=== PATIENT | female | born 1960 | race Caucasian/White ===

== ENCOUNTER 2020-01-12 10:15 | Outpatient (CLI) | payer OTHER, SELFPAY ==
--- NOTE | ~2020-01-12 | MM_ITS ---
EXAMINATION: MM screening [facility] BI w sweta HISTORY: Screening mammogram TECHNIQUE: Craniocaudal and mediolateral oblique 3-D tomosynthesis images were obtained and synthetic 2-D images were generated. CAD analysis was submitted and interpreted. COMPARISON: 10/21/2018, 11/13/2016, 04/19/2015 BREAST PARENCHYMAL COMPOSITION: There are scattered areas of fibroglandular density. FINDINGS: Scattered benign-appearing calcifications are present. There is no evidence of suspicious m ass, calcification, or architectural distortion to suggest malignancy in either breast. There has bee n no suspicious interval change. IMPRESSION: 1. No mammographic evidence of malignancy. 2. Recommend routine screening mammography in one year. BI-RADS Category 2: Benign finding(s). Reviewed, dictated and finalized at location A.
== END 2020-01-12 10:16 | disposition home or self-care (01) ==
LOC: ANHIMG 10:19
PROVIDERS: PCP Emergency Medicine; Visit Provider Emergency Medicine
DX: Z12.31 Encounter for screening mammogram for malignant neoplasm of breast (principal)
CPT/HCPCS: 77063; 77067

== ENCOUNTER 2020-01-29 17:06 | Emergency (ER) | payer OTHER, SELFPAY ==
[2020-01-29 17:18] VITALS: BP 150/72; PULSE 83; RESP 16; TEMP 36.7; O2SAT 95
--- NOTE | 2020-01-29 17:37 | ED.GENADULT ---
HPI - General Adult General Chief complaint: Extremity Injury, Lower Stated complaint: URI/Right knee pain History of Present Illness HPI narrative: This is a 59-year-old female comes in complaining head burning states that after she found out her daughter did not have the coronavirus her head started burning she also has pressure in her nasal nares and pressure in her face and congestion patient states that she not able to blow her ears. Patient has order from x-ray but forgot it at home and will return back with x-ray Related Data Home Medications Medication Instructions Recorded Confirmed lisinopril 20 mg PO DAILY 01/29/20 01/29/20 Allergies Allergy/AdvReac Type Severity Reaction Status Date / Time No Known Allergies Allergy Unknown Verified 08/05/19 15:18 No Known Allergies Allergy Uncoded 08/05/19 15:18 Review of Systems Review of Systems: Narrative: CONSTITUTIONAL: Denies fever, chills, or sweats. EYES: Denies visual changes, redness, or discharge. ENT: Reports rhinorrhea, congestion, sore throat, or otalgia. CARDIOVASCULAR:Denies chest pain, palpitations, or edema. RESPIRATORY: Reports cough or dyspnea. GASTROINTESTINAL: Denies abdominal pain, nausea, vomiting, or diarrhea. GENITOURINARY: Denies dysuria or hematuria. SKIN:[Denies rash or itching. MUSCULOSKELETAL:Denies back pain, joint pain, or myalgia. NEUROLOGIC: Denies headache, numbness, or weakness. PSYCHIATRIC:Denies anxiety or depression [facility] Family History Family History (Updated 07/04/14 @ 07:13 by DOCTOR UNKNOWN) Other Family history of coronary artery disease Social History Social History Alcohol intake: current Gender identity (if verbalized by the patient): Female Comments Gross at time as signature, I have reviewed and agree with nursing past medical, social, surgical and family history. Please see nursing chart for further information. There is no relevant family history pertinent to the presenting complaint. Exam Narrative: Exam Narrative: GENERAL:Well-appearing, well-nourished, and in no acute distress. HEAD:Normocephalic, atraumatic. EYES: PERRLA and EOMI. ENT: Nares clear, moderate rhinorrhea TM pressure frontal and maxillary or epistaxis. Mucous membranes moist. Forehead pain and pressure burning per patient no erythema swelling NECK: Supple. CHEST: Clear to auscultation. No respiratory distress. HEART: Regular rate and rhythm. No murmur heard. Normal peripheral pulses. ABDOMEN: Soft, nontender, nondistended, normal active bowel sounds. EXTREMITIES: Normal range of motion. No edema. SKIN: Warm, dry, no rash. NEURO: No focal deficits. Alert and oriented x3. Course Vital Signs Vital signs: Vital Signs Temperature 98.1 F 01/29/20 17:18 Pulse Rate 83 01/29/20 17:18 Respiratory Rate 16 01/29/20 17:18 Blood Pressure 150/72 H 01/29/20 17:18 Pulse Oximetry 95 01/29/20 17:18 Temperature 98.1 F 01/29/20 17:18 Pulse Rate 83 01/29/20 17:18 Respiratory Rate 16 01/29/20 17:18 Blood Pressure 150/72 H 01/29/20 17:18 Pulse Oximetry 95 01/29/20 17:18 Medical Decision Making Vital Signs Vital Signs: Vital Signs Temperature 98.1 F 01/29/20 17:18 Pulse Rate 83 01/29/20 17:18 Respiratory Rate 16 01/29/20 17:18 Blood Pressure 150/72 H 01/29/20 17:18 Pulse Oximetry 95 01/29/20 17:18 Temperature 98.1 F 01/29/20 17:18 Pulse Rate 83 01/29/20 17:18 Respiratory Rate 16 01/29/20 17:18 Blood Pressure 150/72 H 01/29/20 17:18 Pulse Oximetry 95 01/29/20 17:18 Discharge Plan Discharge Clinical Impression: Acute sinus infection Qualifiers: Sinusitis location: frontal Recurrence: recurrent Qualified Code(s): J01.11 - Acute recurrent frontal sinusitis Patient Disposition: Home, Self-Care Condition: Stable Instructions: Antibiotic Form, Sinusitis (ED), Rhinosinusitis (ED), Warm Compress or Soak (ED) Prescriptions: New amoxicillin-pot clavu
== END 2020-01-29 17:49 | disposition home or self-care (01) ==
PROVIDERS: Emergency Provider Nurse Practitioner Family; PCP Emergency Medicine
DX: J01.11 Acute recurrent frontal sinusitis (principal); I10 Essential (primary) hypertension
CPT/HCPCS: 99213; G0463

== ENCOUNTER → 2020-02-02 12:25 | Outpatient (CLI) | payer OTHER, SELFPAY ==
--- NOTE | ~2020-02-02 | XR_ITS ---
EXAMINATION: XR knee RT min 4V DATE: 02/02/2020 12:47 INDICATION: Right knee pain post injury TECHNIQUE: Anteroposterior, 2 oblique and crosstable lateral views of the right knee were obtained COMPARISON: 08/05/2011 FINDINGS: Alignment is normal. No fracture. Mild tricompartmental osteoarthritis with at least mild joint spac e narrowing the medial and patellofemoral compartments and small marginal osteophytes in the lateral compartment. Moderate enthesophyte at the patellar insertion of the distal quadriceps tendon. No appr eciable right knee joint effusion/layering lipohemarthrosis. Soft tissues are unremarkable. IMPRESSION: 1. . Right knee mild tricompartmental osteoarthritis. No joint effusion or acute osseous abnormality. Reviewed, dictated and finalized at location A. IMPRESSION: 1. . Right knee mild tricompartmental osteoarthritis. No joint effusion or acut e osseous abnormality.
== END ==
PROVIDERS: PCP Emergency Medicine; Visit Provider Emergency Medicine
DX: M17.11 Unilateral primary osteoarthritis, right knee (principal)
CPT/HCPCS: 73564

== ENCOUNTER 2020-03-07 11:04 | Emergency (ER) | payer OTHER, SELFPAY ==
[2020-03-07 11:16] VITALS: BP 155/86; PULSE 90; RESP 16; TEMP 36.5; O2SAT 98
--- NOTE | 2020-03-07 11:23 | ED.GENADULT ---
HPI - General Adult General Chief complaint: Headache Stated complaint: head pain Time Seen by Provider: 03/07/20 11:23 Source: patient Mode of arrival: ambulatory Limitations: no limitations History of Present Illness HPI narrative: 59-year-old female patient presents to the [facility] with complaints of headache for the past couple of months. Patient states she has also had a lot of pressure under her eyes, itching to her eyes. Patient also complaining of stuffy nose. Denies any chest pain, shortness of breath or coughing. Patient states she was seen here couple months ago and was given an antibiotic along with some Zyrtec. Patient states she also saw her primary doctor last week and was given another antibiotic. Patient states she continues to have a headache and feels very congested with a lot of pressure to the head. Patient does smoke about 1/2 pack a day. Denies being diabetic. Related Data Home Medications Medication Instructions Recorded Confirmed lisinopril 20 mg PO DAILY 01/29/20 01/29/20 Allergies Allergy/AdvReac Type Severity Reaction Status Date / Time No Known Allergies Allergy Unknown Verified 08/05/19 15:18 No Known Allergies Allergy Uncoded 08/05/19 15:18 Review of Systems Review of Systems: Narrative: CONSTITUTIONAL: Denies fever, chills, or sweats. EYES: Denies visual changes, redness, or discharge. ENT: Positive rhinorrhea, congestion denies sore throat, or otalgia. CARDIOVASCULAR: Denies chest pain, palpitations, or edema. RESPIRATORY: Denies cough or dyspnea. GASTROINTESTINAL: Denies abdominal pain, nausea, vomiting, or diarrhea. GENITOURINARY: Denies dysuria or hematuria. SKIN: Denies rash or itching. MUSCULOSKELETAL: Denies back pain, joint pain, or myalgia. NEUROLOGIC: Positive headache, denies numbness, or weakness. PSYCHIATRIC: Denies anxiety or depression. [facility] Family History Family History Other Family history of coronary artery disease Social History Social History Alcohol intake: current Gender identity (if verbalized by the patient): Female Comments At the time of my signature I agree with nursing past medical history, surgical, social, and family history. There is no relevant family history pertinent to the presenting complaint. Exam Narrative: Exam Narrative: GENERAL: Well-appearing, well-nourished, and in no acute distress. HEAD: Normocephalic, atraumatic. Tenderness noted to frontal maxillary sinuses on palpation EYES: PERRLA and EOMI. ENT: Nares with erythema and edema noted bilaterally, no rhinorrhea or epistaxis. Mucous membranes moist. Posterior pharynx with no erythema, tonsillar edema, exudates or lesions present. Bilateral TMs are clear no erythema or foreign bodies in the canal. NECK: Supple. No lymphadenopathy CHEST: Clear to auscultation. No respiratory distress. HEART: Regular rate and rhythm. No murmur heard. Normal peripheral pulses. ABDOMEN: Soft, nontender, nondistended, normal active bowel sounds. EXTREMITIES: Normal range of motion. No edema. SKIN: Warm, dry, no rash. NEURO: Alert and oriented x4, GCS 15. Cranial nerves II through XII grossly intact. No focal neurological deficits. Normal muscle strength and tone. Normal deep tendon reflexes. Negative Babinski, normal finger to nose coordination he had normal heel to robertson glide. Speech is clear. Normal gait. Negative Romberg and no pronator drift Course Vital Signs Vital signs: Vital Signs Temperature 36.5 C 03/07/20 11:16 Pulse Rate 90 03/07/20 11:16 Respiratory Rate 16 03/07/20 11:16 Blood Pressure 155/86 H 03/07/20 11:16 Pulse Oximetry 98 03/07/20 11:16 Temperature 36.5 C 03/07/20 11:16 Pulse Rate 90 03/07/20 11:16 Respiratory Rate 16 03/07/20 11:16 Blood Pressure 155/86 H 03/07/20 11:16 Pulse Oximetry 98 03/07/20 11:16 Vital signs reviewed.
== END 2020-03-07 11:48 | disposition home or self-care (01) ==
PROVIDERS: Emergency Provider Nurse Practitioner Family; PCP Emergency Medicine
DX: J32.0 Chronic maxillary sinusitis (principal); R51 Headache; I10 Essential (primary) hypertension; F17.210 Nicotine dependence, cigarettes, uncomplicated
CPT/HCPCS: 99213; G0463

== ENCOUNTER 2020-03-16 10:23 | Emergency (ER) | payer OTHER, SELFPAY ==
[2020-03-16 10:36] VITALS: BP 161/80; PULSE 103; RESP 18; TEMP 36.6; O2SAT 98
--- NOTE | 2020-03-16 11:52 | ED.GENADULT ---
HPI - General Adult General Chief complaint: Extremity Problem,Nontraumatic Stated complaint: right knee injury causing pain Time Seen by Provider: 03/16/20 10:28 History of Present Illness HPI narrative: Patient is a 59-year-old female who presents the ER with right knee pain. Reports it is been ongoing for 3 months. She had an x-ray performed several weeks ago that was unremarkable. She now sees Dr. Gutiérrez who has an outpatient MRI scheduled for her. She has no new trauma. No new swelling or redness to the knee. She has been taking diclofenac without improvement. Related Data Home Medications Medication Instructions Recorded Confirmed lisinopril 20 mg PO DAILY 01/29/20 01/29/20 diclofenac sodium PO 03/16/20 Allergies Allergy/AdvReac Type Severity Reaction Status Date / Time No Known Allergies Allergy Unknown Verified 03/16/20 10:44 Review of Systems Review of Systems: All systems reviewed & are unremarkable except as noted in HPI and below Constitutional: Constitutional: Denies chills, Denies fever(s) and Denies weakness ENT: Denies nasal congestion and Denies sore throat Cardiovascular: Cardiovascular: Denies chest pain and Denies rapid heart rate Respiratory: Respiratory: Denies cough and Denies dyspnea Musculoskeletal: Musculoskeletal: Denies myalgias, Reports arthralgias and Denies joint swelling PMFSH Past Medical History Medical History (Updated 03/16/20 @ 12:29 by Deion Arias MD) Hypertension Surgical History Surgical History (Updated 03/16/20 @ 11:55 by Deion Arias MD) No significant past surgical history Social History Social History (Updated 03/16/20 @ 11:55 by Deion Arias MD) Smoking status: Never smoker Alcohol intake: current Gender identity (if verbalized by the patient): Female Exam Narrative: Exam Narrative: GENERAL: Well-appearing, well-nourished, and in no acute distress. HEAD: Normocephalic, atraumatic. ENT: Mucous membranes moist. EXTREMITIES: Limited range of motion at the right knee due to pain, no swelling or joint line tenderness. No redness over the knee. SKIN: Warm, dry, no rash. NEURO: No focal deficits. Alert and oriented x3. PSYCH: Normal mood and affect. Course Course Emergency Course: Discussed with patient that she needs to continue follow-up with Dr. Gutiérrez. No MRI can be obtained today. No signs of infection on examination or in history. Patient may require knee replacement to totally fix her discomfort. Vital Signs Vital signs: Vital Signs Temperature 98 F 03/16/20 10:36 Pulse Rate 103 H 03/16/20 10:36 Respiratory Rate 18 03/16/20 10:36 Blood Pressure 161/80 H 03/16/20 10:36 Pulse Oximetry 98 03/16/20 10:36 Temperature 98 F 03/16/20 10:36 Pulse Rate 103 H 03/16/20 10:36 Respiratory Rate 18 03/16/20 10:36 Blood Pressure 161/80 H 03/16/20 10:36 Pulse Oximetry 98 03/16/20 10:36 Medical Decision Making Vital Signs Vital Signs: Vital Signs Temperature 98 F 03/16/20 10:36 Pulse Rate 103 H 03/16/20 10:36 Respiratory Rate 18 03/16/20 10:36 Blood Pressure 161/80 H 03/16/20 10:36 Pulse Oximetry 98 03/16/20 10:36 Temperature 98 F 03/16/20 10:36 Pulse Rate 103 H 03/16/20 10:36 Respiratory Rate 18 03/16/20 10:36 Blood Pressure 161/80 H 03/16/20 10:36 Pulse Oximetry 98 03/16/20 10:36 Discharge Plan Discharge Clinical Impression: Chronic knee pain Patient Disposition: Home, Self-Care Condition: Stable Instructions: Knee Pain (ED), Arthritis (ED) Additional Instructions: Return to the ER if you have chest pain or shortness of breath, you cannot keep down food or water, you have fever over 100.4 ?F, you have additional concerns. Prescriptions: New hydrocodone-acetaminophen 5-325 mg tablet 1 tablet PO Q6H PRN (Reason: pain) Qty: 20 RF: 0 No Action lisinopril 20 mg Tablet 20 mg PO DAILY RF: 0 diclofenac sodium 75 mg table
[2020-03-16 13:11] VITALS: BP 142/76; PULSE 88; RESP 16; O2SAT 97
== END 2020-03-16 12:45 | disposition home or self-care (01) ==
PROVIDERS: Emergency Provider Emergency Medicine; PCP Emergency Medicine
DX: M25.561 Pain in right knee (principal); I10 Essential (primary) hypertension; G89.29 Other chronic pain
CPT/HCPCS: 99283; A9270

== ENCOUNTER 2020-08-27 06:48 | Outpatient (NON) | payer OTHER, SELFPAY ==
[2020-08-27 23:56] LABS: SARS-CoV-2 RNA PCR Negative
== END 2020-08-27 06:49 ==
LOC: ANHCOVIDDT 06:52
PROVIDERS: PCP Emergency Medicine; Visit Provider Emergency Medicine
DX: Z20.828 Contact with and (suspected) exposure to other viral communicable diseases (principal); J02.9 Acute pharyngitis, unspecified
CPT/HCPCS: 87635; C9803; U0003

== ENCOUNTER 2021-01-14 08:19 | Outpatient (CLI) | payer OTHER, SELFPAY ==
--- NOTE | ~2021-01-14 | MM_ITS ---
EXAMINATION: MM screening [facility] BI w sweta HISTORY: Screening mammogram TECHNIQUE: Craniocaudal and mediolateral oblique 3-D tomosynthesis images were obtained and synthetic 2-D images were generated. CAD analysis was submitted and interpreted. COMPARISON: 01/12/2020, 10/21/2018, 11/13/2016 bilateral digital screening mammogram examinations BREAST PARENCHYMAL COMPOSITION: There are scattered areas of fibroglandular density. FINDINGS: Stable approximately 3 mm low-density circumscribed opacity in the posterior mid to lower o uter right breast, unchanged since 05/2017, likely a benign intramammary lymph node. Occasional be nign calcifications. There is no evidence of suspicious mass, calcification, or architectural distort ion to suggest malignancy in either breast. There has been no suspicious interval change. IMPRESSION: 1. No mammographic evidence of malignancy. 2. Recommend routine screening mammography in one year. BI-RADS Category 2: Benign finding(s). Reviewed, dictated and finalized at location A. TIC ROOM ATTENDANT
== END 2021-01-14 08:20 | disposition home or self-care (01) ==
LOC: ANHIMG 08:22
PROVIDERS: PCP Emergency Medicine; Visit Provider Emergency Medicine
DX: Z12.31 Encounter for screening mammogram for malignant neoplasm of breast (principal)
CPT/HCPCS: 77063; 77067

== ENCOUNTER → 2021-01-15 10:46 | Outpatient (CLI) | payer OTHER, SELFPAY ==
--- NOTE | ~2021-01-15 | XR_ITS ---
EXAMINATION: XR knee RT 2V EXAM DATE: 01/15/2021 12:02 INDICATION: Lump post rt knee. TECHNIQUE: Right knee lateral, oblique and frontal projections. Comparison is made to prior examinati on from 08/05/2011. FINDINGS: No evidence osteochondral defect or joint body in the right knee joint. There are no acut e fractures or dislocations identified. There is no subcutaneous gas. The soft tissue is unremarkab le. There are no radiopaque foreign bodies. No joint effusion. There is mild to moderate primary os teoarthritis. IMPRESSION: Mild to moderate right knee osteoarthritis. Reviewed, dictated and finalized at location B. RATORY TECH
--- NOTE | ~2021-01-15 | XR_ITS ---
EXAMINATION: XR shoulder LT min 2V DATE: 01/15/2021 12:02 INDICATION: Left shoulder pain. TECHNIQUE: 4 views of left shoulder were obtained. COMPARISON: Left shoulder radiographs 08/05/2019 FINDINGS: Bone alignment is normal. No fracture. Glenohumeral joint is normal. There is severe acromi oclavicular joint osteoarthritis. There are loose bodies in the glenohumeral joint including the pedro pablo ps tendon sheath. IMPRESSION: 1. Severe acromioclavicular joint osteoarthritis. 2. Loose bodies in the glenohumeral joint. Reviewed, dictated and finalized at location A. 911 EM[employer]GENCY SERVICES DISPATCHER
--- NOTE | ~2021-01-15 | XR_ITS ---
EXAMINATION: XR forearm LT 2V, XR hand LT min 3V EXAM DATE: 01/15/2021 12:02 INDICATION: Left shoulder, forearm, hand pain, lump post rt knee . No recent injury has been reported . TECHNIQUE: Left hand frontal, lateral and oblique projections obtained and reviewed. Frontal and lat eral projections left forearm. There are no prior studies for comparison. FINDINGS: Left metacarpal bones are unremarkable. There is mild left elbow and 1st carpometacarpal p rimary osteoarthritis. No evidence of elbow joint effusion. There are no bony erosions identified. Th ere are no acute fractures or dislocations identified. There is no subcutaneous gas. The soft tissu e is unremarkable. There are no radiopaque foreign bodies. IMPRESSION: Mild left elbow, left 1st CMC joint osteoarthritis. Reviewed, dictated and finalized at location B. RESELLER IMPRESSION: Mild left elbow, left 1st CMC joint osteoarthritis.
== END ==
PROVIDERS: PCP Emergency Medicine; Visit Provider Emergency Medicine
DX: M17.11 Unilateral primary osteoarthritis, right knee (principal); M19.022 Primary osteoarthritis, left elbow; M19.012 Primary osteoarthritis, left shoulder; M24.012 Loose body in left shoulder
CPT/HCPCS: 73030; 73090; 73130; 73560

== ENCOUNTER 2021-01-17 09:27 | Outpatient (CLI) | payer OTHER, SELFPAY ==
[2021-01-17 10:58] LABS: Hepatitis B Surface Antigen Negative (Negative)
[2021-01-17 11:03] LABS: HAV RESULT Negative (Negative); Hepatitis B Core IgM Result Negative (Negative)
[2021-01-17 11:15] LABS: Hepatitis C Virus Antibody Negative (Negative)
== END 2021-01-17 09:28 | disposition home or self-care (01) ==
PROVIDERS: PCP Emergency Medicine; Visit Provider Emergency Medicine
DX: R94.5 Abnormal results of liver function studies (principal)
CPT/HCPCS: 36415; 80074

== ENCOUNTER 2021-01-18 07:03 | Outpatient (CLI) | payer OTHER, SELFPAY ==
--- NOTE | ~2021-01-18 | US_ITS ---
EXAMINATION: US abdomen limited DATE: 01/18/2021 07:33 INDICATION: Abnormal liver function tests. TECHNIQUE: Multiple grayscale and Doppler ultrasound images of the abdomen were obtained. COMPARISON: Ultrasound 06/09/2014 FINDINGS: The visualized portions of the head, body, and tail of the pancreas are normal. There is di ffuse hepatic steatosis. No liver surface nodularity. There is normal flow in main portal vein. The g allbladder is normal in size. No gallstones or gallbladder wall thickening. There was no sonographic Ruvalcaba sign. The common duct is normal and measures 4 mm. IMPRESSION: 1. Diffuse hepatic steatosis. Reviewed, dictated and finalized at location A.
== END 2021-01-18 07:04 | disposition home or self-care (01) ==
LOC: ANHIMG 07:04
PROVIDERS: PCP Emergency Medicine; Visit Provider Emergency Medicine
DX: R74.01 Elevation of levels of liver transaminase levels (principal); K76.0 Fatty (change of) liver, not elsewhere classified
CPT/HCPCS: 76705

== ENCOUNTER 2021-02-01 07:45 | Outpatient (CLI) | payer OTHER, SELFPAY ==
--- NOTE | ~2021-02-01 | US_ITS ---
EXAMINATION: US soft tissue LE RT EXAM DATE: 02/01/2021 08:10 INDICATION: Lump behind right knee. TECHNIQUE: Multiple grayscale and Doppler images of the right popliteal fossa were obtained (by a karen hnologist who performed the scan) and subsequently reviewed. Correlation is made to x-ray 01/15/2021. FINDINGS: There is anechoic cystic mass in the symptomatic region, popliteal fossa, probably a Green's cyst. Th is measures 6.3 x 4.6 x 3.1 cm. IMPRESSION: Right popliteal fossa cystic region most likely large Green's cyst. Reviewed, dictated and finalized at location A.
== END 2021-02-01 07:46 | disposition home or self-care (01) ==
PROVIDERS: PCP Emergency Medicine; Visit Provider Emergency Medicine
DX: R22.41 Localized swelling, mass and lump, right lower limb (principal)
CPT/HCPCS: 76882

== ENCOUNTER 2021-03-22 20:18 | Emergency (ER) | payer OTHER, SELFPAY ==
[2021-03-22] VITALS (15 sets, daily range): BP systolic 114–140; BP diastolic 56–82; PULSE 81–99; RESP 13–24; TEMP 36.3; O2SAT 96
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
--- NOTE | ~2021-03-22 | XR_ITS ---
EXAMINATION: XR knee RT 3V EXAM DATE: 03/22/2021 21:25 INDICATION: Right leg numbness. No known injury. TECHNIQUE: Three projections of the right knee. Comparison is made to prior examination from . FINDINGS: No evidence osteochondral defect or joint body in the right knee joint. There is mild to moderate patellofemoral and medial tibial femoral, mild lateral tibiofemoral primary osteoarthritis. No joint effusion. There are no acute fractures or dislocations identified. There is no subcutaneou s gas. The soft tissue is unremarkable. There are no radiopaque foreign bodies. IMPRESSION: Right knee osteoarthritis. Reviewed, dictated and finalized at location G. IMPRESSION: Right knee osteoarthritis.
--- NOTE | ~2021-03-22 | CT_ITS ---
EXAMINATION: CT lumbar spine wo [facility] EXAM DATE: 03/22/2021 21:11 INDICATION: No known recent injury provided at this time. Pain of the low back. TECHNIQUE: Spiral CT of the lumbar spine was performed without contrast. Axial, coronal and sagittal images lumbar spine were reviewed. The dose-length product (DLP) for this examination was 579.87 mG y-cm. The exposure was tailored according to patient size (auto mA exposure control), and iterative reconstruction (ASIR) was used as additional dose reduction technique. There is no prior study for comparison. FINDINGS: Mild diffuse lumbar disc disease. The vertebral body and disc heights are otherwise well ma intained. The vertebral bodies are aligned in the AP dimension. Mild to moderate aortic arterial scle rosis. Mild to moderate right, mild left hydroureteronephrosis to the pelvic inlet. No nephrolithiasi s or ureteral stones (the UVJs were imaged). Bladder is significantly distended at time of imaging. N eurogenic bladder should be considered. Sacroiliac joints are unremarkable. There are no acute fractu res identified. Level by level evaluation: T12-L1: Disc does not extend beyond the endplate margin. Facet arthropathy: None. Neural foraminal stenosis: No stenosis. Central canal stenosis: No stenosis. L1-L2: Disc does not extend beyond the endplate margin. Facet arthropathy: Mild. Neural foraminal stenosis: No stenosis. Central canal stenosis: No stenosis. L2-L3: There is a mild diffuse disc bulge. Facet arthropathy: Mild. Neural foraminal stenosis: No stenosis. Central canal stenosis: No stenosis. L3-L4: There is a mild to moderate diffuse disc bulge. Facet arthropathy: Mild to moderate. Neural foraminal stenosis: No stenosis. Central canal stenosis: No stenosis. L4-L5: There is a mild to moderate diffuse disc bulge. Facet arthropathy: Moderate right, mild to moderate left. Neural foraminal stenosis: Mild left. Central canal stenosis: No stenosis. L5-S1: There is a mild to moderate diffuse disc bulge. Facet arthropathy: Mild to moderate bilateral. Neural foraminal stenosis: No stenosis. Central canal stenosis: No stenosis. IMPRESSION: 1. Mild to moderate lower lumbar spondylosis. 2. Moderate right, mild left hydroureteronephrosis without nephrolithiasis or obstructing ureteral st ones. Bladder is also severely distended at time of imaging. Clinical correlation. Consider follow-up nonemergent pre and post void pelvic sonogram if neurogenic bladder is possibility. Reviewed, dictated and finalized at location G. IMPRESSION: 1. Mild to moderate lower lumbar spondylosis. 2. Moderate right, mild left hydroureteronephrosis without nephrolithiasis or o bstructing ureteral stones. Bladder is also severely distended at time of imagi ng. Clinical correlation. Consider follow-up nonemergent pre and post void pelv ic sonogram if neurogenic bladder is possibility.
--- NOTE | 2021-03-22 21:16 | PC.NURSE ---
Patient in radiology at this time.
--- NOTE | 2021-03-22 21:46 | PC.NURSE ---
Patient voided and emptied her bladder. Patient states after she emptied her bladder she is able to slightly lift her right leg. Patient states she has normal sensations and feeling, just states slight weakness, but now improving. Informed ERP of patient's change in symptoms.
[2021-03-22 21:48] LABS: Basophils Percent Auto 0.4 % (0.2-1.2); Eosinophils Absolute Auto 0.1 K/mm3 (0-0.3); Eosinophils Percent Auto 0.9 % (0-4.4); Hemoglobin 13.3 g/dL (12.0-15.0); Immature Granulocyte Absolute 0.03 K/mm3 (0.00-0.031); Immature Granulocyte Percent A 0.3 % (0-0.5); Lymphocytes Absolute Auto 4.12 K/mm3 (0.9-3.2); Lymphocytes Percent Auto 39.6 % (18.3-44.2); Mean Corpuscular HGB Conc 33.3 g/dl (32-36); Mean Corpuscular Hemoglobin 31.9 pg (26-34); Mean Corpuscular Volume 95.9 fl (80-100); Monocytes Absolute Auto 0.7 K/mm3 (0.1-0.6); Monocytes Percent Auto 6.7 % (2.6-8.5); Neutrophils Absolute Auto 5.4 K/mm3 (1.3-6.7); Neutrophils Percent Auto 52.1 % (45.5-73.1); Platelet Count Result 353 k/mm3 (150-375); Red Blood Count 4.17 M/mm3 (4.2-5.4); Red Cell Distribution Width 13.6 % (11.5-14.5); White Blood Count 10.4 K/mm3 (4.5-10.0)
[2021-03-22 21:50] LABS: Add Urine Microscopic? NO; Appearance Urine Clear (Clear); Bilirubin Urine Negative (Negative); Blood Urine Negative (Negative); Color Urine Colorless (Yellow); Glucose Urine UA Negative (Negative); Ketones Urine Negative (Negative); Leukocyte Esterase Ur Negative LEU/UL (Negative); Nitrate Urine Negative (Negative); Protein Urine Negative (Negative); Urobilinogen Urine Negative mg/dL (<2.0)
[2021-03-22 21:51] LABS: Specific Grav Ur 1.003 (1.001-1.035)
[2021-03-22 22:19] LABS: Alanine Aminotransferase 45 U/L (4-35); Albumin Level 4.4 g/dL (3.5-5.1); Alkaline Phosphatase 73 U/L (38-126); Anion Gap 10 mmol/L (8-16); Aspartate Amino Transferase 32 U/L (14-36); Bilirubin,Total < 0.1 mg/dL (0.2-1.3); Blood Urea Nitrogen 12 mg/dL (7-17); Calcium 9.3 mg/dL (8.4-10.2); Carbon Dioxide 22 mmol/L (22-30); Chloride 104 mmol/L (98-107); Estimated CRCL calculation 68 ml/min; Estimated Glomerular Filt Rate > 60; Glucose 107 mg/dL (65-105); Potassium 4.3 mmol/L (3.4-5.0); Sodium 136 mmol/L (137-145)
[2021-03-22] MEDS: diazePAM INJ (*CRX) 10 MG/2 ML SYRINGE 5 MG IV PUSH (22:44)
[2021-03-23] VITALS: PULSE 89; RESP 21
--- NOTE | 2021-03-23 00:34 | ED.GENADULT ---
HPI - General Adult General Chief complaint: Extremity Injury, Lower Stated complaint: cant feel my right leg Time Seen by Provider: 03/22/21 20:57 History of Present Illness HPI narrative: Patient 60-year-old female who presents to emergency department with chief complaint of inability to move right leg. Patient reports she was drinking tonight and was picked up by her significant other patient reports that she had pain in her right lower extremity worse in her knee and reports that whenever she attempts to lift her leg it is weak. Initially the patient states she did not have pain in the extremity but after the alcohol is proceeded to wear off the patient reports that she has pain in her knee. Related Data Home Medications Medication Instructions Recorded Confirmed lisinopril 20 mg PO DAILY 01/29/20 03/22/21 loratadine [Claritin] 10 mg PO DAILY 03/22/21 03/22/21 Allergies Allergy/AdvReac Type Severity Reaction Status Date / Time No Known Allergies Allergy Unknown Verified 03/22/21 20:29 Review of Systems Review of Systems: Narrative: A 10 system review of systems was completed on the patient and is negative except for what is stated in the HPI. Nursing and ancillary documentation was reviewed. [facility] Past Medical History Medical History Hypertension Surgical History Surgical History No significant past surgical history Family History Family History Other Family history of coronary artery disease Social History Social History Smoking status: Never smoker Alcohol intake: current Gender identity (if verbalized by the patient): Female Exam Narrative: Exam Narrative: GENERAL: Well-appearing, well-nourished, and in no acute distress. HEAD: Normocephalic, atraumatic. EYES: PERRLA and EOMI. ENT: Nares clear, no rhinorrhea or epistaxis. Mucous membranes moist. NECK: Supple. CHEST: Clear to auscultation. No respiratory distress. HEART: Regular rate and rhythm. No murmur heard. Normal peripheral pulses. ABDOMEN: Soft, nontender, nondistended, normal active bowel sounds. EXTREMITIES: Normal range of motion. No edema. Patient has tenderness to palpation in the right knee SKIN: Warm, dry, no rash. NEURO: No focal deficits. Alert and oriented x3. PSYCH: Normal mood and affect. Course Course Emergency Course: Patient underwent helical imaging of his lumbar spine which showed no evidence of acute abnormality. Plain film x-rays of the hip and the right knee showed no evidence of fracture. As the patient has metabolized her alcohol in her system the patient has subsequently noticed that she is able to actually ambulate but has pain in her right knee. Vital Signs Vital signs: Vital Signs Temperature 36.3 C L 03/22/21 20:45 Pulse Rate 95 03/22/21 20:45 Respiratory Rate 17 03/22/21 20:45 Blood Pressure 114/56 L 03/22/21 20:45 Pulse Oximetry 96 03/22/21 20:45 Temperature 36.3 C L 03/22/21 20:45 Pulse Rate 89 03/23/21 00:00 Respiratory Rate 21 H 03/23/21 00:00 Blood Pressure 115/66 03/22/21 23:30 Pulse Oximetry 96 03/22/21 20:45 Medical Decision Making Vital Signs Vital Signs: Vital Signs Temperature 36.3 C L 03/22/21 20:45 Pulse Rate 95 03/22/21 20:45 Respiratory Rate 17 03/22/21 20:45 Blood Pressure 114/56 L 03/22/21 20:45 Pulse Oximetry 96 03/22/21 20:45 Temperature 36.3 C L 03/22/21 20:45 Pulse Rate 89 03/23/21 00:00 Respiratory Rate 21 H 03/23/21 00:00 Blood Pressure 115/66 03/22/21 23:30 Pulse Oximetry 96 03/22/21 20:45 Lab Data Result diagrams: 03/22/21 21:41 03/22/21 21:41 Labs: Lab Results 03/22/21 03/22/21 03/22/21 Range/Units 21:41 21:
[2021-03-23 01:13] VITALS: BP 117/62; PULSE 88; RESP 20; O2SAT 96
== END 2021-03-23 01:15 | disposition home or self-care (01) ==
PROVIDERS: Emergency Provider Emergency Medicine; PCP Emergency Medicine
DX: S83.91XA Sprain of unspecified site of right knee, initial encounter (principal); I10 Essential (primary) hypertension; X58.XXXA Exposure to other specified factors, initial encounter
CPT/HCPCS: 36415; 72131; 73502; 73562; 80053; 81003; 85025; 96374; 99284; J3360

== ENCOUNTER 2021-04-08 14:51 | Emergency (ER) | payer OTHER, SELFPAY ==
--- NOTE | ~2021-04-08 | US_ITS ---
EXAMINATION: US right upper quadrant DATE: 04/08/2021 16:11 INDICATION: Right upper quadrant abdominal pain. TECHNIQUE: Multiple grayscale and Doppler ultrasound images of the abdomen were obtained. COMPARISON: Abdomen ultrasound 01/18/2021 FINDINGS: The visualized portion of the head of the pancreas is normal. There is diffuse hepatic stea tosis. No liver surface nodularity. There is normal flow in main portal vein. The gallbladder is norm al in size. No gallstones or gallbladder wall thickening. There is no sonographic Ruvalcaba sign. The co mmon duct is normal and measures 4 mm. IMPRESSION: 1. Diffuse hepatic steatosis. Reviewed, dictated and finalized at location A.
[2021-04-08 14:55] VITALS: BP 145/66; PULSE 90; RESP 15; TEMP 36.4; O2SAT 97
--- NOTE | 2021-04-08 15:10 | PC.NURSE ---
x few days cramping, bloating non-radiating RUQ pain worse today, +N -V. Denies urinary s/s. LBM yesterday watery stool . Went to PCP office today, sent here
[2021-04-08] MEDS: MORPHINE SULFATE (*CRX) 4 MG/ML INJ IV PUSH (15:42)
[2021-04-08 15:50] LABS: Basophils Percent Auto 0.5 % (0.2-1.2); Eosinophils Absolute Auto 0.1 K/mm3 (0-0.3); Eosinophils Percent Auto 1.2 % (0-4.4); Hematocrit 40.7 % (37.0-47.0); Hemoglobin 13.3 g/dL (12.0-15.0); Immature Granulocyte Absolute 0.02 K/mm3 (0.00-0.031); Immature Granulocyte Percent A 0.2 % (0-0.5); Lymphocytes Absolute Auto 2.87 K/mm3 (0.9-3.2); Lymphocytes Percent Auto 33.9 % (18.3-44.2); Mean Corpuscular HGB Conc 32.7 g/dl (32-36); Mean Corpuscular Hemoglobin 31.2 pg (26-34); Mean Corpuscular Volume 95.5 fl (80-100); Mean Platelet Volume 9.1 fl (7.4-10.4); Monocytes Absolute Auto 0.7 K/mm3 (0.1-0.6); Monocytes Percent Auto 7.8 % (2.6-8.5); Neutrophils Absolute Auto 4.8 K/mm3 (1.3-6.7); Neutrophils Percent Auto 56.4 % (45.5-73.1); Platelet Count Result 344 k/mm3 (150-375); Red Blood Count 4.26 M/mm3 (4.2-5.4); Red Cell Distribution Width 13.7 % (11.5-14.5); White Blood Count 8.5 K/mm3 (4.5-10.0)
[2021-04-08 16:01] LABS: Alanine Aminotransferase 32 U/L (4-35); Albumin Level 4.5 g/dL (3.5-5.1); Alkaline Phosphatase 76 U/L (38-126); Anion Gap 9 mmol/L (8-16); Aspartate Amino Transferase 28 U/L (14-36); Bilirubin,Total 0.3 mg/dL (0.2-1.3); Blood Urea Nitrogen 16 mg/dL (7-17); Calcium 10.2 mg/dL (8.4-10.2); Carbon Dioxide 24 mmol/L (22-30); Chloride 108 mmol/L (98-107); Estimated CRCL calculation 78 ml/min; Estimated Glomerular Filt Rate > 60; Glucose 98 mg/dL (65-105); Lipase 65 U/L (23-300); Potassium 4.5 mmol/L (3.4-5.0); Sodium 141 mmol/L (137-145)
[2021-04-08 16:30] VITALS: BP 138/71; PULSE 72; RESP 17; O2SAT 96
--- NOTE | 2021-04-08 17:25 | ED.GENADULT ---
HPI - General Adult General Chief complaint: Abdominal Pain Stated complaint: abdominal pain Time Seen by Provider: 04/08/21 15:05 History of Present Illness HPI narrative: Patient is a 60-year-old female who presents ER with right upper quadrant abdominal pain. Worsening over last couple days. Worse when she eats and drinks. Better with rest. Denies fevers or chills or sweats. Sent in by PCP for further evaluation. Denies reflux. Related Data Home Medications Medication Instructions Recorded Confirmed lisinopril 20 mg PO DAILY 01/29/20 03/22/21 loratadine [Claritin] 10 mg PO DAILY 03/22/21 03/22/21 Allergies Allergy/AdvReac Type Severity Reaction Status Date / Time No Known Allergies Allergy Unknown Verified 03/22/21 20:29 Review of Systems Review of Systems: All systems reviewed & are unremarkable except as noted in HPI and below Constitutional: Constitutional: Denies chills and Denies fever(s) Respiratory: Respiratory: Denies cough and Denies dyspnea Gastrointestinal: Gastrointestinal: Reports abdominal pain, Denies constipation, Denies heartburn, Denies diarrhea, Reports nausea and Denies vomiting PMFSH Past Medical History Medical History Hypertension Surgical History Surgical History No significant past surgical history Family History Family History Other Family history of coronary artery disease Social History Social History Smoking status: Never smoker Alcohol intake: current Gender identity (if verbalized by the patient): Female Exam Narrative: Exam Narrative: GENERAL: Well-appearing, well-nourished, and in no acute distress. HEAD: Normocephalic, atraumatic. CHEST: Clear to auscultation. No respiratory distress. HEART: Regular rate and rhythm. Normal peripheral pulses. ABDOMEN: Soft, tender palpation right upper quadrant mild, nondistended. EXTREMITIES: Normal range of motion. No edema. SKIN: Warm, dry, no rash. NEURO: Alert and oriented x3. PSYCH: Normal mood and affect. Course Course Emergency Course: Patient informed of results. Discharge home. Vital Signs Vital signs: Vital Signs Temperature 97.6 F 04/08/21 14:55 Pulse Rate 90 04/08/21 14:55 Respiratory Rate 15 04/08/21 14:55 Blood Pressure 145/66 H 04/08/21 14:55 Pulse Oximetry 97 04/08/21 14:55 Temperature 97.6 F 04/08/21 14:55 Pulse Rate 71 04/08/21 17:30 Respiratory Rate 17 04/08/21 17:30 Blood Pressure 126/74 04/08/21 17:30 Pulse Oximetry 95 04/08/21 17:30 Medical Decision Making Vital Signs Vital Signs: Vital Signs Temperature 97.6 F 04/08/21 14:55 Pulse Rate 90 04/08/21 14:55 Respiratory Rate 15 04/08/21 14:55 Blood Pressure 145/66 H 04/08/21 14:55 Pulse Oximetry 97 04/08/21 14:55 Temperature 97.6 F 04/08/21 14:55 Pulse Rate 71 04/08/21 17:30 Respiratory Rate 17 04/08/21 17:30 Blood Pressure 126/74 04/08/21 17:30 Pulse Oximetry 95 04/08/21 17:30 Lab Data Result diagrams: 04/08/21 15:44 04/08/21 15:44 Labs: Lab Results 04/08/21 04/08/21 Range/Units 15:44 15:44 WBC 8.5 (4.5-10.0) K/mm3 RBC 4.26 (4.2-5.4) M/mm3 Hgb 13.3 (12.0-15.0) g/dL Hct 40.7 (37.0-47.0) % MCV 95.5 (80-100) fl MCH 31.2 (26-34) pg MCHC 32.7 (32-36) g/dl RDW 13.7 (11.5-14.5) % Plt Count 344 (150-375) k/mm3 MPV 9.1 (7.4-10.4) fl Immature Gran % (Auto) 0.2 (0-0.5) % Neut % (Auto) 56.4 (45.5-73.1) % Lymph % (Auto) 33.9 (18.3-44.2) % Person % (Auto) 7.8 (2.6-8.5) % Eos % (Auto) 1.2 (0-4.4) % Baso % (Auto) 0.5 (0.2-1.2) % Lymph # (Auto) 2.87 (0.9-3.2) K/mm3 Person # (Auto) 0.7 H (0.1-0.6) K/mm3 Eos # (Auto)
[2021-04-08 17:30] VITALS: BP 126/74; PULSE 71; RESP 17; O2SAT 95
--- NOTE | 2021-04-08 17:43 | PC.NURSE ---
Pt resting on cart HOB elevated, pt and updated on POC. Pt reports a little RUQ pain , denies N/V
[2021-04-08 18:52] VITALS: BP 121/68; PULSE 73; RESP 15; O2SAT 95
== END 2021-04-08 18:58 | disposition home or self-care (01) ==
PROVIDERS: Emergency Provider Emergency Medicine; PCP Emergency Medicine
DX: R10.11 Right upper quadrant pain (principal); K76.0 Fatty (change of) liver, not elsewhere classified; I10 Essential (primary) hypertension
CPT/HCPCS: 36415; 76705; 80053; 83690; 85025; 96374; 99284; J2270

== ENCOUNTER 2021-08-12 14:08 | Outpatient (CLI) | payer OTHER, SELFPAY ==
--- NOTE | 2021-08-12 13:45 | ECG_ITS ---
Measurements Intervals [place] Rate: 81 P: 41 OK: 158 QRS: 31 QRSD: 94 T: 38 QT: 344 QTc: 402 Interpretive Statements SINUS RHYTHM INCOMPLETE RIGHT BUNDLE BRANCH BLOCK BORDERLINE R WAVE PROGRESSION, ANTERIOR LEADS BASELINE ARTIFACT- I, II, III, AVR, AVL, AVF BORDERLINE ECG Electronically Signed On 08-12-2021 14:47:44 CDT by Baltazar Rdoriguez D.O.
== END 2021-08-12 14:09 | disposition home or self-care (01) ==
PROVIDERS: PCP Emergency Medicine; Visit Provider Orthopaedic Surgery
DX: E78.5 Hyperlipidemia, unspecified (principal); I10 Essential (primary) hypertension; F17.210 Nicotine dependence, cigarettes, uncomplicated; I45.10 Unspecified right bundle-branch block
CPT/HCPCS: 93005

== ENCOUNTER 2021-08-19 02:35 | Day surgery (SDC) | payer OTHER, SELFPAY ==
[2021-08-11 13:32] VITALS: BMI 26.7
--- NOTE | 2021-08-17 12:42 | PM.IMHP ---
H&P: HPI History of Present Illness Date/Time: 08/17/21 12:42 the patient is a 61-year-old female whose sees Dr. Park regarding her right knee. Patient has a chronic ongoing history of pain localized right knee particularly medially. Patient has pain with ambulation notes pain with twisting or turning squatting kneeling going up and down stairs. The patient reports mechanical symptoms and reports associated swelling and limitation in daily activities due to her significant symptoms. Despite conservative measures including cortisone therapy and anti-inflammatories symptoms continue. An MRI scan was done this shows a small knee joint effusion marginal osteophytes seen at the patellofemoral and tibial femoral joint representing degenerative changes and a Green cyst. There is also a complex tear of the posterior horn of the medial meniscus and linear abnormal signal seen in the anterior horn of the lateral meniscus reaching to the superior articular surface possibly representing a tear here as well. At this point the patient has discussed treatment options in detail Dr. Park she is where she has pre-existing osteoarthritis and may not get full relief of her knee pain for knee arthroscopy however she would like to proceed. Chief Complaint: Right knee pain due to medial and lateral meniscal pathology Review of Systems Review of Systems: All systems reviewed & are unremarkable except as noted in HPI and below PMFSH Past Medical History Medical History Hypertension Surgical History Surgical History No significant past surgical history Family History Family History Other Family history of coronary artery disease Social History Social History Smoking packs per day: 0.5 Smoking cigarettes per day: 10.0 Years smoked: 40 Smoking pack-years: 20.00 Smoking status: Current every day smoker Tobacco type: cigarettes Alcohol intake: current Alcohol use details: 12/MONTH Substance use: never Substance use type: does not use Gender identity (if verbalized by the patient): Female Spiritual care concerns: No Meds Home Medications and Allergies Home Medications Medication Instructions Recorded Confirmed Type lisinopril 10 mg PO DAILY 01/29/20 08/11/21 History loratadine [Claritin] 10 mg PO DAILY 03/22/21 08/11/21 History simvastatin 20 mg PO HS 08/11/21 08/11/21 History Allergies Allergy/AdvReac Type Severity Reaction Status Date / Time No Known Allergies Allergy Unknown Verified 08/11/21 13:31 Exam Narrative: On exam the patient is noted be a well-developed well-nourished female no acute distress alert oriented x3. Normal mood and affect. The patient is 5 ft 5 in tall 160 lb. Hearing and vision are intact. Respiratory is good no distress. Pulse regular rate rhythm. Abdomen benign. Extremities showed the patient's right knee to be painful with manipulation range of motion. The patient has tenderness on the medial joint line with a positive Thania exam negative Meredith knee joint is otherwise stable strength is 5 5 there is mild subpatellar crepitation mild effusion swelling in the right knee. Neurovascular patient is intact. Strength is 5 5 hips move well with negative Stinchfield negative DEBORAH. MRI scan is as above. Central nervous system exam within normal limits. Assessment and Plan Additional Plan By MRI and exam the patient is noted to have medial and possible lateral meniscal tears of the right knee with above associated findings. The patient has discussed risks benefits limitations and alternatives to surgery in great detail Dr. Park she is now ready to proceed with a right knee arthroscopy partial medial meniscectomy possible partial lateral meniscectomy proceed a
[2021-08-19] VITALS (12 sets, daily range): BP systolic 104–151; BP diastolic 60–89; PULSE 68–78; RESP 13–20; TEMP 36.3–36.4; O2SAT 94–99
--- NOTE | 2021-08-19 07:06 | WPDHPUPDATE1 ---
History and Physical Update Update Date/Time: 08/19/21 07:06 History and Physical has been reviewed, including an updated exam of the patient. There are NO changes in the patient's condition. Risks, benefits, and alternatives have been discussed and questions answered. Patient agrees to proceed with procedure.
[2021-08-19] MEDS: ACETAMINOPHEN 500 MG TABLET 1000 MG PO (09:20)
[2021-08-19] MEDS: LACTATED RINGERS 1,000 ML 30 ML IV CONT (09:25)
[2021-08-19] MEDS: KETOROLAC 15 MG/ML VIAL (*BKC) IV PUSH (09:27)
--- NOTE | 2021-08-19 09:35 | WPDANESEPPF ---
Anes - Initial Pre Proc Eval Procedure: Operation Date: 08/19/21 10:30 Proposed Procedures p Right Knee Arthroscopy, Partial Medial Meniscectomy, Proceed As Indicated - Johnson Park MD Date/Time: 08/19/21 09:35 Surgeon: Johnson Park MD Pre Op Diagnosis: medial meniscal tear right knee Patient Data Age: 61 Gender: F Height: 1.65 m Weight: 73 kg Allergies Allergy/AdvReac Type Severity Reaction Status Date / Time No Known Allergies Allergy Unknown Verified 08/11/21 13:31 Home Medications Medication Instructions Recorded Confirmed Type lisinopril 10 mg PO DAILY 01/29/20 08/19/21 History loratadine [Claritin] 10 mg PO DAILY 03/22/21 08/19/21 History simvastatin 20 mg PO HS 08/11/21 08/19/21 History Patient hx anesthesia problems: none Family hx anesthesia problems: none Results Review: All pre-operative results and documents have been reviewed as part of the pre-operative evaluation. PMFSH Past Medical History Medical History (Updated 08/19/21 @ 09:35 by Yeyo Galvan MD) Hyperlipidemia Hypertension Surgical History Surgical History No significant past surgical history Family History Family History Other Family history of coronary artery disease Social History Social History Smoking packs per day: 0.5 Smoking cigarettes per day: 10.0 Years smoked: 40 Smoking pack-years: 20.00 Smoking status: Never smoker Tobacco type: cigarettes Alcohol intake: current Alcohol use details: 12/MONTH Substance use: never Substance use type: does not use Living arrangements: with family Gender identity (if verbalized by the patient): Female Spiritual care concerns: No Anes - Eval Final PreProcedure Day of Procedure 08/19/21 09:35 Patient weight: overweight Heart: regular rate and rhythm Lungs: decreased breath sounds Airway: Mallampati scale class II Neurological: alert and oriented Last oral intake: >/= 8 hours ASA classification: III Emergent: no Anesthetic plan: proceed Anesthesia type and monitoring: general LMA and standard monitoring Results Review: All pre-operative results and documents have been reviewed as part of the pre-operative evaluation. Informed Consent: The patient's anesthetic plan and its attendant risks and benefits were discussed with the patient/family/POA. Questions were solicited and answers provided to the satisfaction of the patient/family/POA.
[2021-08-19] MEDS: ceFAZolin 2 GM/D5W 50 ML 2 GM/50 ML BAG IVPB (10:08)
[2021-08-19] MEDS: LIDO 1%/EPINEPHRINE 1:100,000 50 ML VIAL 20 ML INFILTRATE (10:30)
--- NOTE | 2021-08-19 10:35 | W.PM.PROC2 ---
Procedure Note - Detailed Date of Procedure 08/19/21 Pre-op Diagnosis medial meniscal tear right knee Post-op Diagnosis same Procedure Performed [side] knee arthroscopy with partial meniscetomy Surgeon Johnson Park MD Anesthesia general Description of Procedure Patient brought to the operating room and anesthetic was administered. The knee was steriley prepped and drapped in the usual manner. Standard portals were used. Superior medial portal was used for the outflow cannula, inferior lateral portal was used for the scope, inferior medial portal was used for the instruments. Arthroscopy was performed, the patellar femoral joint degenerative changes. The medial compartment showed a complex tear. The lateral compartment showed fraying. The ACL was intact. Using baskets and marcin the meniscal tear was trimmed back to a stable base so the nothing further could be pulled into the joint. Any loose or delaminated fragments were gently trimmed to a stable base. At this point the instruments were withdrawn, sutures placed and patient left the operating room in satisfactory condition. The patient had grade 3 hanges throughout the medial compartment. Estimated Blood Loss 20 Drains No Packing No Pathology none sent Complications No immediate complications Condition stable Disposition PACU
== END 2021-08-19 12:36 | disposition home or self-care (01) ==
PROVIDERS: PCP Emergency Medicine; Visit Provider Orthopaedic Surgery
PROC: (CPT 29870; principal; 2021-08-19 10:30)
DX: M23.321 Other meniscus derangements, posterior horn of medial meniscus, right knee (principal); M71.21 Synovial cyst of popliteal space [Baker], right knee; I10 Essential (primary) hypertension; E78.5 Hyperlipidemia, unspecified; F17.210 Nicotine dependence, cigarettes, uncomplicated
CPT/HCPCS: 29881; A9270; J0690; J1885; J2250; J3010; J7120

== ENCOUNTER 2021-12-04 15:02 | Outpatient (CLI) | payer OTHER, SELFPAY ==
--- NOTE | ~2021-12-04 | CT_ITS ---
EXAMINATION: CT soft tissue neck w con DATE: 12/04/2021 15:38 INDICATION: Benign neoplasm of parotid gland. TECHNIQUE: Computed tomography (CT) of the neck was performed with 75 mL Omnipaque-350 intravenous co ntrast. Automated exposure control and iterative reconstruction technique were employed. The dose-[place] gth product was 575.31 mGy-cm. COMPARISON: None FINDINGS: There are likely changes of ocular lens replacement surgeries. There is a 3.0 x 1.8 cm hype rdense mass involving superficial and deep left parotid gland. There are no pathologically enlarged l ymph nodes. There is plaque in the proximal internal carotid areas with less than 50% stenosis relati ve to normal distal artery lumen diameters. There is minimal mucosal thickening in the paranasal sinu ses. The mastoid air cells are normal. There is mild cervical spondylosis. IMPRESSION: 1. 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 The differential diagnosis includes benign mixed tumor, W arthin tumor, and less likely primary malignancy or [place] metastatic disease. Ultrasound-guided fine- needle aspiration is recommended. Reviewed, dictated and finalized at location A. WRESTLER IMPRESSION: 1. 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 The differential diagnosis includes benign mixed tumor, Warthin tumor, and less likely primary malignancy or [place] metastatic disease. Ultrasound-guided fine-needle aspiration is recommended.
[2021-12-04 15:33] LABS: Estimated Glomerular Filt Rate > 60
== END 2021-12-04 15:03 | disposition home or self-care (01) ==
PROVIDERS: PCP Emergency Medicine; Visit Provider Otolaryngology
DX: D11.0 Benign neoplasm of parotid gland (principal)
CPT/HCPCS: 70491; Q9967

== ENCOUNTER 2021-12-21 08:18 | Emergency (ER) | payer OTHER, SELFPAY ==
--- NOTE | ~2021-12-21 | XR_ITS ---
XR shoulder LT min 2V DATE: 12/21/2021 09:01 INDICATION: Left shoulder injury TECHNIQUE: 4 views COMPARISON: 01/15/2021 left shoulder FINDINGS: Multiple up to 9 mm radiopaque loose bodies are again noted within the shoulder joint. No fracture or dislocation, periosteal reaction or bone destruction of the left shoulder is evident. Normal alignment at the acromioclavicular joint with joint space narrowing and mild spurring. The glenohumeral joint space appears well preserved. IMPRESSION: Multiple calcified glenohumeral joint loose bodies Mild degenerative change at the left acromioclavicular joint Reviewed, dictated and finalized at location B. MAN
[2021-12-21 08:28] VITALS: BP 142/97; PULSE 94; RESP 18; TEMP 36.5; O2SAT 98
--- NOTE | 2021-12-21 08:31 | ED.UPPEXIN ---
HPI - Extremity Injury (Upper) General Chief Complaint: Extremity Injury, Upper Stated Complaint: Left shoulder Pain Time Seen by Provider: 12/21/21 08:31 Source: patient and family () Mode of arrival: ambulatory Limitations: no limitations History of Present Illness HPI narrative: 61-year-old female presents to the [facility] with complaints of left shoulder pain since , 4 days ago. Patient states on Tuesday she was doing planks and felt a pop in the lateral aspect of the left shoulder. Has decreased range of motion. Called her primary doctor and was prescribed Flexeril, states it upsets her stomach. Also purchased a sling which she has been wearing all the time since MD complaint: injury to: left and shoulder Related Data Home Medications Medication Instructions Recorded Confirmed lisinopril 10 mg PO DAILY 01/29/20 08/19/21 loratadine [Claritin] 10 mg PO DAILY 03/22/21 08/19/21 simvastatin 20 mg PO HS 08/11/21 08/19/21 Allergies Allergy/AdvReac Type Severity Reaction Status Date / Time No Known Allergies Allergy Unknown Verified 12/21/21 08:52 Review of Systems Review of Systems: All systems reviewed & are unremarkable except as noted in HPI and below Constitutional: Constitutional: Reports no additional constitutional complaints, Denies chills, Denies fever(s), Denies headache(s) and Denies weakness Eyes: Eyes: Reports no additional eye complaints and Denies change in vision ENT: Reports system reviewed and no additional complaints, except as documented, Denies vertigo, Denies dizziness and Denies headache(s) Cardiovascular: Cardiovascular: Reports no additional cardiovascular complaints, Denies chest pain, Denies syncope and Denies dyspnea Respiratory: Respiratory: Reports no additional respiratory complaints, Denies cough and Denies dyspnea Gastrointestinal: Gastrointestinal: Reports no additional gastrointestinal complaints, Denies abdominal pain, Denies nausea and Denies vomiting Musculoskeletal: Musculoskeletal: Reports as per HPI, Reports arthralgias (Left generalized shoulder, worse laterally), Denies joint swelling and Denies numbness Integumentary/Breasts: Skin/Breast: Reports system reviewed and no additional complaints, except as docu, Denies erythema and Denies rash Neurologic: Reports system reviewed and no additional complaints, except as documented, Denies confusion, Denies vertigo, Denies dizziness, Denies syncope, Denies headache(s), Denies focal weakness, Denies numbness and Denies weakness Psychiatric: Psychiatric: Reports no additional psychiatric complaints and Denies confusion Allergic/Immunologic: Allergic/Immunologic: Reports no additional allergic/immunologic complaints PMFSH Past Medical History Medical History Hyperlipidemia Hypertension Surgical History Surgical History No significant past surgical history Family History Family History Other Family history of coronary artery disease Social History Social History Smoking packs per day: 0.5 Smoking cigarettes per day: 10.0 Years smoked: 40 Smoking pack-years: 20.00 Smoking status: Never smoker Tobacco type: cigarettes Alcohol intake: current Alcohol use details: 12/MONTH Substance use: never Substance use type: does not use Gender identity (if verbalized by the patient): Female Spiritual care concerns: No Comments At the time of my signature, I reviewed and agree with the nursing past medical, surgical, social, and family history. There is no relevant family history pertinent to the patient complaint. Exam Const: General: no acute distress, alert and ill appearing chronically; not acutely; No confusion Nutritional Appearance: well nourished Orientation/consciousness: patie
== END 2021-12-21 09:40 | disposition home or self-care (01) ==
PROVIDERS: Emergency Provider Nurse Practitioner; PCP Emergency Medicine
DX: M19.012 Primary osteoarthritis, left shoulder (principal); M75.32 Calcific tendinitis of left shoulder; F17.210 Nicotine dependence, cigarettes, uncomplicated; E78.5 Hyperlipidemia, unspecified; I10 Essential (primary) hypertension
CPT/HCPCS: 73030; 99213; G0463

== ENCOUNTER 2022-02-20 08:28 | Outpatient (CLI) | payer OTHER, SELFPAY ==
--- NOTE | ~2022-02-20 | MM_ITS ---
EXAMINATION: MM screening varinder BI w sweta HISTORY: Screening mammogram TECHNIQUE: Craniocaudal and mediolateral oblique 3-D tomosynthesis images were obtained and synthetic 2-D images were generated. CAD analysis was submitted and interpreted. COMPARISON: No prior mammogram is available for comparison at this institution. BREAST PARENCHYMAL COMPOSITION: There are scattered areas of fibroglandular density. FINDINGS: Occasional benign calcifications. There is no evidence of suspicious mass, calcification, o r architectural distortion to suggest malignancy in either breast. There has been no suspicious inter weston change. IMPRESSION: 1. No mammographic evidence of malignancy. 2. Recommend routine screening mammography in one year. BI-RADS Category 2: Benign finding(s). Reviewed, dictated and finalized at location A.
== END 2022-02-20 08:29 | disposition home or self-care (01) ==
PROVIDERS: PCP Emergency Medicine; Visit Provider Emergency Medicine
DX: Z12.31 Encounter for screening mammogram for malignant neoplasm of breast (principal)
CPT/HCPCS: 77063; 77067

== ENCOUNTER 2022-10-13 10:38 | Outpatient (CLI) | payer OTHER, SELFPAY ==
[2022-10-13 11:08] LABS: Hematocrit 40.1 % (37.0-47.0); Hemoglobin 13.4 g/dL (12.0-15.0); Mean Corpuscular HGB Conc 33.4 g/dl (32-36); Mean Corpuscular Hemoglobin 32.3 pg (26-34); Mean Corpuscular Volume 96.6 fl (80-100); Platelet Count Result 314 k/mm3 (150-375); Red Blood Count 4.15 M/mm3 (4.2-5.4); White Blood Count 8.3 K/mm3 (4.5-10.0)
[2022-10-13 11:18] LABS: Alanine Aminotransferase 38 U/L (6-35); Albumin Level 4.5 g/dL (3.5-5.1); Alkaline Phosphatase 72 U/L (38-126); Anion Gap 7 mmol/L (8-16); Aspartate Amino Transferase 25 U/L (14-36); Bilirubin,Total 0.5 mg/dL (0.2-1.3); Blood Urea Nitrogen 20 mg/dL (7-17); Carbon Dioxide 25 mmol/L (22-30); Chloride 107 mmol/L (98-107); Cholesterol 240 mg/dL (0-200); Estimated Glomerular Filt Rate > 60; Glucose 104 mg/dL (65-110); HDL Direct 51 mg/dL; Potassium 4.3 mmol/L (3.4-5.0); Sodium 139 mmol/L (137-145); Triglycerides 155 mg/dL (<150)
[2022-10-13 11:29] LABS: LDL Cholesterol Direct 132 mg/dL
[2022-10-13 11:31] LABS: Hemoglobin A1C 6.1 % (<5.7)
[2022-10-13 11:46] LABS: Free T4 Free Thyroxine 1.07 ng/mL (0.78-2.19); Vitamin D 25 Hydroxy 26.7 ng/mL
[2022-10-13 11:50] LABS: Creatinine Urine 122.7 mg/dL
[2022-10-13 11:54] LABS: MALB Creatinine Ratio 5.3 mg/g (0-30); Microalbumin Urine Random 6.5 mg/L (0-16.7)
[2022-10-13 16:06] LABS: Appearance Urine Cloudy (Clear); Bilirubin Urine Negative (Negative); Blood Urine Negative (Negative); Color Urine Yellow (Yellow); Glucose Urine UA Negative (Negative); Ketones Urine Negative (Negative); Leukocyte Esterase Ur Trace LEU/UL (NEGATIVE); Nitrate Urine Negative (Negative); Protein Urine Negative (Negative); Specific Grav Ur 1.025 (1.001-1.035); Urobilinogen Urine 0.2 mg/dL (<2.0)
[2022-10-13 16:13] LABS: Bacteria Urine Trace /hpf; Mucus Urine Few /lpf; Squamous Epithelial Cell Urine Many /hpf (Few)
[2022-10-13 16:15] LABS: Add Urine Microscopic? YES
== END 2022-10-13 10:39 | disposition home or self-care (01) ==
LOC: ANHLAB 10:40
PROVIDERS: PCP Emergency Medicine; Visit Provider Emergency Medicine
DX: Z00.00 Encounter for general adult medical examination without abnormal findings (principal)
CPT/HCPCS: 36415; 80053; 80061; 81001; 82043; 82306; 83036; 84439; 84443; 85027; 87086

== ENCOUNTER 2022-10-19 07:46 | Outpatient (CLI) | payer OTHER, SELFPAY ==
--- NOTE | ~2022-10-19 | US_ITS ---
EXAMINATION: US carotid duplex BI DATE: 10/19/2022 09:48 INDICATION: Subjective visual disturbance. Vertigo. Lightheadedness. TECHNIQUE: Grayscale, color Doppler, and pulsed Doppler images of the cervical carotid arteries were obtained. The degree of vessel stenosis is placed in one of the following categories: normal, <50%, 5 0-69%, >=70% but less than near-occlusion, near-occlusion, or total occlusion. Note that percent sten osis relative to normal distal artery lumen diameter is indirectly measured from velocity measurement s as described by Sampson, et al. Radiology 2003; [id number]:[id number]. COMPARISON: None. FINDINGS: RIGHT: The right common carotid artery (CCA) peak systolic velocity (PSV) is 83 cm/s. The right internal car otid artery (ICA) PSV is 83 cm/s. The right ICA end-diastolic velocity (EDV) is 30 cm/s. The right IC A/CCA PSV ratio is 1.0. Grayscale and color Doppler images yield an estimate of <50% diameter reducti on from plaque in the ICA. The external carotid artery (ECA) PSV is 88 cm/s. There is antegrade flow in the right vertebral artery. LEFT: The left CCA PSV is 99 cm/s. The left ICA PSV is 89 cm/s. The left ICA EDV is 34 cm/s. The left ICA/C CA PSV ratio is 0.9. Grayscale and color Doppler images yield an estimate of <50% diameter reduction from plaque in the ICA. The ECA PSV is 103 cm/s. There is antegrade flow in the left vertebral artery . IMPRESSION: 1. <50% stenosis in the right internal carotid artery. 2. <50% stenosis in the left internal carotid artery. Reviewed, dictated and finalized at location A. [employer]
== END 2022-10-19 07:47 | disposition home or self-care (01) ==
PROVIDERS: PCP Emergency Medicine; Visit Provider Emergency Medicine
DX: R42 Dizziness and giddiness (principal); I65.23 Occlusion and stenosis of bilateral carotid arteries
CPT/HCPCS: 93880

== ENCOUNTER 2023-05-28 08:26 | Outpatient (CLI) | payer OTHER, SELFPAY ==
--- NOTE | ~2023-05-28 | MM_ITS ---
EXAMINATION: MM screening [facility] BI w sweta HISTORY: Screening mammogram TECHNIQUE: Craniocaudal and mediolateral oblique 3-D tomosynthesis images were obtained and synthetic 2-D images were generated. CAD analysis was submitted and interpreted. COMPARISON: February 20, 2022, January 14, 2021, January 12, 2020 bilateral screening mammogram examinations The urinary bladder is nearly completely as clinically BREAST PARENCHYMAL COMPOSITION: FINDINGS: There is no evidence of suspicious mass, calcification, or architectural distortion to sugg est malignancy in either breast. There has been no suspicious interval change. IMPRESSION: 1. No mammographic evidence of malignancy. 2. Recommend routine screening . BI-RADS Category 1: Negative Reviewed, dictated and finalized at location A.
== END 2023-05-28 08:27 | disposition home or self-care (01) ==
PROVIDERS: PCP Emergency Medicine; Visit Provider Emergency Medicine
DX: Z12.31 Encounter for screening mammogram for malignant neoplasm of breast (principal)
CPT/HCPCS: 77063; 77067

== ENCOUNTER 2023-12-15 11:15 | Outpatient (RCR) | payer OTHER, SELFPAY ==
--- NOTE | 2023-10-28 11:02 | PTOPEVAL1 ---
Assessment and note entered by Florentino Donato, PT Evaluation Information Assessment Status Evaluation Diagnosis Right TKA, Right knee pain, Knee edema, altered gait Onset 10/25/23 Subjective Information Reports that overall she feels she is doing okay. She is taking Oxycodone and Tylenol for pain. Single step to porch that she is doing fine with. She is struggling with pain a little but but has been moving and active. Independent prior to surgery. Reported Pain Level Pain Score 6: Self Report Assessment PT Clinical Summary Patient presents with edema, loss in knee ROM, pain, and weakness in knee typical of post operative TKA. Patient will benefit from skilled therapy to address these deficits to maximize function and return to independent ambulation. Plan of Care Interventions Electrical Stimulation,Gait Training,Manual Therapy,Neuro Re-education,Patient/Caregiver Education,Therapeutic Activities,Therapeutic Exercise PT Services Indicated Yes Treatment Frequency and 2x/week for 8 visits Duration These treatments will address the objective and functional deficits as defined above. The patient will be advanced safely and appropriately in order for the patient to progress towards his/her prior level of function. Additional exercises will be introduced and as well as a comprehensive home exercise program upon discharge, if needed, ?to ensure carryover of functional gains achieved in the clinic. This treatment plan has been reviewed and agreement upon by the patient.
--- NOTE | 2023-10-28 11:03 | OPREHPOC ---
Outpatient Therapy Plan of Care This is a Multidisciplinary Plan of Care that may contain components documented by all disciplines (PT, OT, and ST.) PT Problem 1 PT Problem #1 Knowledge Deficit PT Goal 1 Goal Independent with HEP Target Visit 4 PT Problem 2 PT Problem #2 Pain PT Goal 1 Goal Report no pain greater that 2/10 with passive knee flexion Target Visit 4 PT Problem 3 PT Problem #3 Impaired Range of Motion PT Goal 1 Goal Achieve 120 degrees of R knee flexion ROM to normailze functional activity Target Visit 8 PT Goal 2 Goal Achieve terminal knee extension t maximize terminal stance of gait Target Visit 8 PT Problem 4 PT Problem #4 Edema PT Goal 1 Goal Demonstrate 2.5 cm+ reduction in joint line measure on R knee for indication of soft tissue healing Target Visit 8 PT Problem 5 PT Problem #5 Impaired Gait PT Goal 1 Goal Ambulate independent of AD with even stride length Target Visit 8 PT Goal 2 Goal Ascend and descend 3 steps with use of hayley UE Target Visit 8
--- NOTE | 2023-11-11 15:53 | PCPTNOTE ---
pt called and canceled today's treatment appt.
--- NOTE | 2023-12-08 13:01 | PTOPPROG ---
Assessment and note entered by Florentino Donato, PT Evaluation Information Assessment Status Progress Diagnosis Right TKA, Right knee pain, Knee edema, altered gait Onset 10/25/23 Subjective Information Reports that she overall is still feeling tight. Has been using walker because she does not feel completely stable on a cane. Feels she has improved but still has a lot of anterior knee pain with bending. Follows up with MD again on 12/26/23 and she was told that they want to see improved bend. Assessment PT Clinical Summary Patient has made excellent progress since initial evaluation. At this time. She is still showing some lack of knee flexion ROM but achieved terminal knee extension and strength has significantly improved. She is paradi tender to passive motion and soft tissue mobility but continues to show functional and objective improvement. Will benefit from continuation of therapy to improve gross knee motion and overall functional mobility. Plan of Care Interventions Electrical Stimulation,Gait Training,Manual Therapy,Neuro Re-education,Patient/Caregiver Education,Therapeutic Activities,Therapeutic Exercise PT Services Indicated Yes Treatment Frequency and 2x/week for 8 visits Duration These treatments will address the objective and functional deficits as defined above. The patient will be advanced safely and appropriately in order for the patient to progress towards his/her prior level of function. Additional exercises will be introduced and as well as a comprehensive home exercise program upon discharge, if needed, ?to ensure carryover of functional gains achieved in the clinic. This treatment plan has been reviewed and agreement upon by the patient.
--- NOTE | 2023-12-22 12:54 | PCPTNOTE ---
Pt. did not show for PT appointment this date. Pt. was called to try and make contact but was unable to be reached.
--- NOTE | 2023-12-27 13:06 | PCPTNOTE ---
Pt no showed visit today, called both number listed for pt with no answer and no voicemail set up on either line.
--- NOTE | 2023-12-29 15:24 | PCPTNOTE ---
Pt canceled due to illness today.
--- NOTE | 2024-01-02 14:16 | PCPTNOTE ---
Patient was a No Show/No call for this Progress note.
--- NOTE | 2024-05-28 07:37 | PCPTNOTE ---
Patient last seen for skilled therapy on 12/15/23. Failed to return to skilled therapy with 4 consecutive No Shows. Patient was discharged from skilled therapy due to lack of communication with clinic.
== END 2024-01-24 11:38 | disposition home or self-care (01) ==
LOC: ANHPT 11:15
PROVIDERS: PCP Emergency Medicine; Visit Provider Orthopaedic Surgery
DX: M17.11 Unilateral primary osteoarthritis, right knee (principal)
CPT/HCPCS: 97016; 97110; 97112; 97116; 97140; 97161; 97530; 99199

== ENCOUNTER 2023-12-21 12:06 | Emergency (ER) | payer OTHER, SELFPAY ==
--- NOTE | ~2023-12-21 | US_ITS ---
EXAMINATION: US venous doppler LE RT DATE: 12/21/2023 16:59 INDICATION: Right lower limb edema. TECHNIQUE: Grayscale ultrasound images without and with compression and Doppler ultrasound images of the right lower extremity veins were obtained. COMPARISON: None. FINDINGS: The visualized portions of right common femoral vein, profunda (deep) femoral vein, femoral vein, pop liteal vein, peroneal veins, posterior tibial veins, and greater saphenous vein outflow are patent. IMPRESSION: 1. No deep venous thrombosis. Reviewed, dictated and finalized at location A. HT ANALYST
[2023-12-21 12:12] VITALS: BP 98/49; PULSE 81; RESP 16; TEMP 36.6; O2SAT 96
[2023-12-21] MEDS: SODIUM CHLORIDE 0.9% IV 1,000 ML 999 ML IV CONT (16:27)
[2023-12-21 16:32] VITALS: BP 109/71; PULSE 80; RESP 18; O2SAT 97
[2023-12-21 16:32] LABS: Basophils Percent Auto 0.4 % (0.2-1.2); Eosinophils Absolute Auto 0.1 K/mm3 (0-0.3); Eosinophils Percent Auto 1.3 % (0-4.4); Hematocrit 40.5 % (37.0-47.0); Hemoglobin 12.7 g/dL (12.0-15.0); Immature Granulocyte Absolute 0.04 K/mm3 (0.00-0.031); Immature Granulocyte Percent A 0.4 % (0-0.5); Lymphocytes Absolute Auto 3.15 K/mm3 (0.9-3.2); Lymphocytes Percent Auto 30.2 % (18.3-44.2); Mean Corpuscular HGB Conc 31.4 g/dl (32-36); Mean Corpuscular Hemoglobin 30.8 pg (26-34); Mean Corpuscular Volume 98.1 fl (80-100); Monocytes Absolute Auto 0.7 K/mm3 (0.1-0.6); Monocytes Percent Auto 6.4 % (2.6-8.5); Neutrophils Absolute Auto 6.4 K/mm3 (1.3-6.7); Neutrophils Percent Auto 61.3 % (45.5-73.1); Platelet Count Result 358 k/mm3 (150-375); Red Blood Count 4.13 M/mm3 (4.2-5.4); Red Cell Distribution Width 13.4 % (11.5-14.5); White Blood Count 10.4 K/mm3 (4.5-10.0)
[2023-12-21 16:43] LABS: Prothrombin Time 13.6 Seconds (11.1-14.7)
[2023-12-21 16:44] LABS: Partial Thromboplastin Time 27.3 SECONDS (22.3-36.8)
[2023-12-21 16:47] LABS: Alanine Aminotransferase 24 U/L (6-35); Albumin Level 4.4 g/dL (3.5-5.1); Alkaline Phosphatase 75 U/L (38-126); Anion Gap 8 mmol/L (8-16); Aspartate Amino Transferase 28 U/L (14-36); Bilirubin,Total 0.4 mg/dL (0.2-1.3); Blood Urea Nitrogen 14 mg/dL (7-17); Calcium 9.7 mg/dL (8.4-10.2); Carbon Dioxide 22 mmol/L (22-30); Chloride 107 mmol/L (98-107); Estimated CRCL calculation 86 ml/min; Estimated Glomerular Filt Rate > 60; Glucose 107 mg/dL (65-110); Potassium 4.1 mmol/L (3.4-5.0); Sodium 137 mmol/L (137-145)
--- NOTE | 2023-12-21 17:18 | ED.GENADULT ---
HPI - General Adult General Chief complaint: Unspecified Stated complaint: r/o knee infection Time Seen by Provider: 12/21/23 16:10 History of Present Illness HPI narrative: Patient is a 63-year-old female who presents ER with swelling to her right lower extremity. Patient underwent right total knee arthroplasty on 10/25/2023. She has had intermittent swelling that time. She last followed up with her surgeon last week. She reports increased swelling and discomfort in leg especially with walking today. She was referred here by her ortho. Denies fevers or chills or sweats. She is able to bear weight. She has no redness to the knee. She continues to have range of motion. Patient has not been elevating her leg at home. Related Data Home Medications Medication Instructions Recorded Confirmed lisinopril 20 mg tablet 10 mg PO DAILY 01/29/20 08/19/21 loratadine 10 mg tablet (Claritin) 10 mg PO DAILY 03/22/21 08/19/21 simvastatin 20 mg tablet 20 mg PO HS 08/11/21 08/19/21 Allergies Allergy/AdvReac Type Severity Reaction Status Date / Time No Known Allergies Allergy Unknown Verified 12/21/21 08:52 Review of Systems Constitutional: Constitutional: Denies chills, Denies fatigue and Denies fever(s) Cardiovascular: Cardiovascular: Reports no additional cardiovascular complaints Respiratory: Respiratory: Reports no additional respiratory complaints Musculoskeletal: Musculoskeletal: Denies back pain, Denies arthralgias, Reports joint swelling and Denies muscle cramps Comments: Right leg swelling Integumentary/Breasts: Skin/Breast: Reports system reviewed and no additional complaints, except as docu Neurologic: Reports system reviewed and no additional complaints, except as documented [facility] Past Medical History Medical History (Updated 12/21/23 @ 18:25 by Deion Arias MD) Hyperlipidemia Hypertension Surgical History Surgical History (Updated 12/21/23 @ 17:20 by Deion Arias MD) Hx of total knee arthroplasty right 2022, Dr. Landis. Family History Family History Other Family history of coronary artery disease Social History Social History Smoking packs per day: 0.5 Smoking cigarettes per day: 10.0 Years smoked: 40 Smoking pack-years: 20.00 Smoking status: Current every day smoker Tobacco type: cigarettes Alcohol intake: current Alcohol use details: 12/MONTH Substance use: never Substance use type: does not use Living arrangements: with family Gender identity (if verbalized by the patient): Female Spiritual care concerns: No Exam Narrative: GENERAL: Well-appearing, well-nourished, and in no acute distress. HEAD: Normocephalic, atraumatic. ENT: Mucous membranes moist. CHEST: Clear to auscultation. No respiratory distress. HEART: Regular rate and rhythm. Normal peripheral pulses. EXTREMITIES: right lower extremity with full range of motion at the knee, there is no erythema at to the knee or leg, there is a fusion of the right knee compared to left side. There is 2+ edema of the right lower extremity compared to left. SKIN: Warm, dry, no rash. NEURO: Alert and oriented x3. PSYCH: Normal mood and affect. Course Course Emergency Course: Patient resting comfortably. Informed of results. I do not think patient has a septic joint as she can move it freely and it is not red. DVT ruled out. Patient will be placed in compression stocking. Also discussed elevating legs when sitting or lying down. Recommend follow-up with PCP and surgeon. Vital Signs Vital signs: Vital Signs Temperature 97.8 F 12/21/23 12:12 Pulse Rate 81 12/21/23 12:12 Respiratory Rate 16 12/21/23 12:12 Blood Pressure 98/49 L 12/21/23 12:12 Pulse Oximetry 96 12/21/23 12:12 Temperature 97.8 F 12/21/23 12:12 Pulse Rate 81 12/21/23 12:12 Respira
--- NOTE | 2023-12-21 18:15 | PC.NURSE ---
measured right leg for thigh high JOANNA corderoe. calf 14cm, knee 17cm and thigh 20cm. length 35cm
[2023-12-21 18:30] VITALS: BP 102/72; PULSE 80; RESP 16; O2SAT 96
== END 2023-12-21 18:33 | disposition home or self-care (01) ==
PROVIDERS: Emergency Provider Emergency Medicine; PCP Emergency Medicine
DX: R60.0 Localized edema (principal); E78.5 Hyperlipidemia, unspecified; I10 Essential (primary) hypertension; Z96.651 Presence of right artificial knee joint; F17.210 Nicotine dependence, cigarettes, uncomplicated
CPT/HCPCS: 36415; 80053; 85025; 85610; 85730; 93971; 96360; 99284; J7030

== ENCOUNTER 2023-12-26 14:17 | Outpatient (CLI) | payer OTHER, SELFPAY ==
[2023-12-26 14:50] LABS: CRP 2.2 mg/dL (<1.0)
[2023-12-26 15:06] LABS: Erythrocyte Sedimentation Rate 24 mm/hr (0-20)
== END 2023-12-26 14:18 | disposition home or self-care (01) ==
LOC: ANHLAB 14:21
PROVIDERS: PCP Emergency Medicine; Visit Provider Orthopaedic Surgery
DX: M25.561 Pain in right knee (principal); Z96.651 Presence of right artificial knee joint
CPT/HCPCS: 36415; 85652; 86140

== ENCOUNTER 2023-12-27 14:20 | Outpatient (NON) | payer OTHER, SELFPAY ==
[2023-12-27 14:54] LABS: Source Synovial Fluid Synovial fluid
[2023-12-27 14:55] LABS: Appearance Synovial Fluid Hazy (Clear); Color Synovial Fluid Yellow (Colorless); Lymphocytes Synovial Fluid 5 %; Monocytes Synovial Fluid 7 %; Neutrophils Synovial Fluid 88 % (0-25); Nucleated Cell Synovial Fluid 8380 /uL (0-200); RBC Synovial Fluid 5000 /uL (0-0)
[2023-12-27 15:01] LABS: Crystals Synovial Fluid None Seen (None Seen)
== END 2023-12-27 14:21 | disposition home or self-care (01) ==
LOC: ANHLAB 14:23
PROVIDERS: PCP Emergency Medicine; Visit Provider Orthopaedic Surgery
DX: M25.561 Pain in right knee (principal); M25.461 Effusion, right knee; Z96.651 Presence of right artificial knee joint
CPT/HCPCS: 87070; 87075; 87205; 89051; 89060

== ENCOUNTER 2024-01-16 18:57 | Outpatient (NON) | payer OTHER, SELFPAY ==
[2024-01-16 20:56] LABS: Source Synovial Fluid Synovial fluid
[2024-01-16 20:57] LABS: Appearance Synovial Fluid Bloody (Clear); Color Synovial Fluid Red (Colorless); Neutrophils Synovial Fluid 89 % (0-25); Nucleated Cell Synovial Fluid 9310 /uL (0-200); RBC Synovial Fluid 75000 /uL (0-0)
[2024-01-16 20:58] LABS: Lymphocytes Synovial Fluid 2 %; Monocytes Synovial Fluid 9 %
[2024-01-16 21:00] LABS: Crystals Synovial Fluid None Seen (None Seen)
== END 2024-01-16 18:58 | disposition home or self-care (01) ==
LOC: ANHLAB 19:01
PROVIDERS: PCP Emergency Medicine; Visit Provider Orthopaedic Surgery
DX: M71.21 Synovial cyst of popliteal space [Baker], right knee (principal)
CPT/HCPCS: 87070; 87075; 87205; 89051; 89060

== ENCOUNTER 2024-01-17 10:14 | Outpatient (CLI) | payer OTHER, SELFPAY ==
[2024-01-17 10:56] LABS: Hematocrit 41.7 % (37.0-47.0); Hemoglobin 13.3 g/dL (12.0-15.0); Mean Corpuscular HGB Conc 31.9 g/dl (32-36); Mean Corpuscular Hemoglobin 31.1 pg (26-34); Mean Corpuscular Volume 97.4 fl (80-100); Mean Platelet Volume 9.2 fl (7.4-10.4); Platelet Count Result 365 k/mm3 (150-375); Red Blood Count 4.28 M/mm3 (4.2-5.4); Red Cell Distribution Width 13.3 % (11.5-14.5); White Blood Count 7.6 K/mm3 (4.5-10.0)
[2024-01-17 11:19] LABS: Alanine Aminotransferase 33 U/L (6-35); Albumin Level 4.4 g/dL (3.5-5.1); Alkaline Phosphatase 78 U/L (38-126); Anion Gap 8 mmol/L (8-16); Aspartate Amino Transferase 30 U/L (14-36); Bilirubin,Total 0.4 mg/dL (0.2-1.3); Blood Urea Nitrogen 16 mg/dL (7-17); CRP < 0.5 mg/dL (<1.0); Calcium 9.6 mg/dL (8.4-10.2); Carbon Dioxide 25 mmol/L (22-30); Chloride 108 mmol/L (98-107); Estimated Glomerular Filt Rate > 60; Glucose 126 mg/dL (65-110); Potassium 4.2 mmol/L (3.4-5.0); Sodium 141 mmol/L (137-145)
[2024-01-17 12:10] LABS: Erythrocyte Sedimentation Rate 19 mm/hr (0-20)
== END 2024-01-17 10:15 | disposition home or self-care (01) ==
LOC: ANHLAB 10:18
PROVIDERS: PCP Emergency Medicine; Referring Provider Physician Assistant Surgical; Visit Provider Orthopaedic Surgery
DX: Z96.651 Presence of right artificial knee joint (principal)
CPT/HCPCS: 36415; 80053; 85027; 85652; 86140

== ENCOUNTER 2024-02-15 13:22 | Emergency (ER) | payer OTHER, SELFPAY ==
[2024-02-15 13:35] VITALS: BP 133/66; PULSE 80; RESP 16; TEMP 36.9; O2SAT 97
--- NOTE | 2024-02-15 13:36 | ED.SKABFB ---
HPI - Skin/Abscess/Foreign Bdy General Chief complaint: Skin/Abscess/Foreign Body Stated complaint: bump palm of left hand Time Seen by Provider: 02/15/24 13:50 Source: patient and RN notes reviewed Mode of arrival: ambulatory Limitations: no limitations History of Present Illness HPI narrative: 63-year-old female presents with concern for a bump on palmar aspect of her left hand that has been there about 2 weeks. Reports that slightly tender when palpated. Reports she uses a cane. She denies redness, warmth complaint: abscess/boil Related Data Home Medications Medication Instructions Recorded Confirmed lisinopril 20 mg tablet 10 mg PO DAILY 01/29/20 08/19/21 loratadine 10 mg tablet (Claritin) 10 mg PO DAILY 03/22/21 08/19/21 simvastatin 20 mg tablet 20 mg PO HS 08/11/21 08/19/21 ergocalciferol (vitamin D2) 1,250 1,250 mcg PO WEEKLY 02/15/24 02/15/24 mcg (50,000 unit) capsule tramadol 50 mg tablet 50 mg PO Q4-6H PRN Pain 02/15/24 02/15/24 Allergies Allergy/AdvReac Type Severity Reaction Status Date / Time No Known Allergies Allergy Unknown Verified 02/15/24 13:29 Review of Systems Review of Systems: CONSTITUTIONAL: Denies malaise, chills, sweats, or fever. EYES: Denies redness, or discharge. ENT: Denies rhinorrhea, congestion, swollen lips, swollen tongue CARDIOVASCULAR: Denies chest pain, palpitations, or edema. RESPIRATORY: Denies cough or dyspnea. GASTROINTESTINAL: Denies abdominal pain, nausea, vomiting SKIN: Reports a bump on the palmar aspect of her left hand MUSCULOSKELETAL: Denies joint pain or myalgia. NEUROLOGIC: Denies headache. All systems reviewed & are unremarkable except as noted in HPI and below PMFSH Past Medical History Medical History (Updated 02/15/24 @ 14:32 by Sangeetha Lozano NP) Hyperlipidemia Hypertension Surgical History Surgical History (Updated 12/21/23 @ 17:20 by Deion Arias MD) Hx of total knee arthroplasty right 2022, Dr. Landis. Family History Family History Other Family history of coronary artery disease Social History Social History Smoking packs per day: 0.5 Smoking cigarettes per day: 10.0 Years smoked: 40 Smoking pack-years: 20.00 Smoking status: Current every day smoker Tobacco type: cigarettes Alcohol intake: current Alcohol use details: 12/MONTH Substance use: never Substance use type: does not use Living arrangements: with family Gender identity (if verbalized by the patient): Female Spiritual care concerns: No Comments At time of signature, agree with nursing past medical, surgical, social and family history. There is no relevant family history pertinent to the presenting complaint Exam Narrative: GENERAL: Well-appearing, well-nourished, and in no acute distress. HEAD: Normocephalic, atraumatic. EYES: PERRLA, conjunctivae clear, and EOMI. ENT: Mucous membranes moist. NECK: Supple. No lymphadenopathy CHEST: Clear to auscultation. No respiratory distress. HEART: Regular rate and rhythm. SKIN: Warm, dry. Proximally 1 cm in diameter fluctuant nodule noted on the palmar aspect of the left hand without surrounding erythema, induration. Mildly tender. NEURO: Alert and oriented x3. PSYCH: Normal mood and affect Course Course Emergency Course: Patient is aware of diagnosis, understands and agrees to treatment plan. Anticipatory guidance given. Patient agrees to follow-up as directed and is aware of reasons to seek care at the emergency department. Portions of this record may have been created with voice recognition software Level of Care: Express Care Visit Vital Signs Vital signs: Vital Signs Temperature 98.4 F 02/15/24 13:35 Pulse Rate 80 02/15/24 13:35 Respiratory Rate 16 02/15/24 13:35 Blood Pressure 133/66 02/15/24 13:35 Pulse Oximetry 97 02/15/24 13:35 Oxygen Del
[2024-02-15 13:37] VITALS: BP 133/66; PULSE 80; RESP 16; TEMP 36.9; O2SAT 97
[2024-02-15] MEDS: LIDOCAINE/PRILOCAINE CREAM 2.5-2.5% TUBE 1 EACH TOPICAL (13:43)
== END 2024-02-15 14:34 | disposition home or self-care (01) ==
PROVIDERS: Emergency Provider Nurse Practitioner; PCP Emergency Medicine
DX: S60.522A Blister (nonthermal) of left hand, initial encounter (principal); X58.XXXA Exposure to other specified factors, initial encounter; E78.5 Hyperlipidemia, unspecified; I10 Essential (primary) hypertension; F17.210 Nicotine dependence, cigarettes, uncomplicated
CPT/HCPCS: 10140; 99212; G0463

== ENCOUNTER 2024-07-26 16:08 | Outpatient (CLI) | payer OTHER, SELFPAY ==
--- NOTE | ~2024-07-26 | MM_ITS ---
EXAMINATION: MM screening [facility] BI w sweta HISTORY: Screening mammogram TECHNIQUE: Craniocaudal and mediolateral oblique 3-D tomosynthesis images were obtained and synthetic 2-D images were generated. CAD analysis was submitted and interpreted. COMPARISON: 05/28/2023, 02/20/2022, 01/14/2021 BREAST PARENCHYMAL COMPOSITION:Not Dense. There are scattered areas of fibroglandular density. FINDINGS: No suspicious mass, calcification, or architectural distortion are identified in either sylvester ast to suggest malignancy. There has been no suspicious interval change. IMPRESSION: No mammographic evidence of malignancy. Recommend routine screening mammography in one year. BI-RADS Category 1: Negative Reviewed, dictated and finalized at location .
== END 2024-07-26 16:09 | disposition home or self-care (01) ==
PROVIDERS: PCP Emergency Medicine; Visit Provider Emergency Medicine
DX: Z12.31 Encounter for screening mammogram for malignant neoplasm of breast (principal)
CPT/HCPCS: 77063; 77067

== ENCOUNTER → 2024-08-06 09:13 | Outpatient (CLI) | payer OTHER, SELFPAY ==
--- NOTE | ~2024-08-06 | XR_ITS ---
EXAMINATION: XR chest 2V 08/06/2024 09:56 INDICATION: Chest pain PROCEDURE: 2 view chest COMPARISON: Comparison to multiple prior studies sequentially, with oldest reviewed study dated 10/07. FINDINGS: The lungs are clear. The cardiomediastinal silhouette is within normal limits. There are no pleural effusions. There is no pneumothorax suspected. IMPRESSION: 1: NO ACUTE CARDIOPULMONARY DISEASE. Reviewed, dictated and finalized at location B.
--- NOTE | ~2024-08-06 | XR_ITS ---
Right Knee Technique: AP and lateral views were obtained. Clinical History: Pain Findings: No fracture or dislocation is seen. Right knee arthroplasty in place. Probable small Joint effusion is seen. Impression: Right knee arthroplasty. Probable small joint effusion. Reviewed, dictated and finalized at location . Impression: Right knee arthroplasty. Probable small joint effusion.
--- NOTE | ~2024-08-06 | XR_ITS ---
Lumbosacral Spine: AP and lateral views Clinical History: Pain Findings: The normal lordotic curve is maintained. The vertebral bodies and posterior elements are i ntact. The intervertebral disc spaces are preserved. Mild facet arthropathy present. The sacroiliac joints are normally outlined. Impression: Mild facet joint degenerative changes. Reviewed, dictated and finalized at location . Impression: Mild facet joint degenerative changes.
== END ==
PROVIDERS: PCP Emergency Medicine; Visit Provider Emergency Medicine
DX: R07.9 Chest pain, unspecified (principal); M25.561 Pain in right knee
CPT/HCPCS: 71046; 72100; 73560

== ENCOUNTER → 2025-03-25 13:54 | Outpatient (CLI) | payer OTHER, SELFPAY ==
--- NOTE | ~2025-03-25 | XR_ITS ---
CHEST RADIOGRAPH, PA AND LATERAL CLINICAL HISTORY: COUGH . COMPARISON: 08/06/2024 TECHNIQUE: PA and lateral views of the chest. FINDINGS The cardiomediastinal silhouette is unremarkable. The lungs are clear. Visualized osseous structures and soft tissues are unremarkable. IMPRESSION: No focal infiltrate or effusion. Reviewed, dictated and finalized at location A.
== END ==
PROVIDERS: PCP Emergency Medicine; Visit Provider Emergency Medicine
DX: R05.9 Cough, unspecified (principal)
CPT/HCPCS: 71046

== ENCOUNTER 2025-05-03 08:28 | Outpatient (CLI) | payer OTHER, SELFPAY ==
[2025-05-03 09:10] LABS: Hematocrit 42.8 % (37.0-47.0); Hemoglobin 13.9 g/dL (12.0-15.0); Mean Corpuscular HGB Conc 32.5 g/dl (32-36); Mean Corpuscular Hemoglobin 31.3 pg (26-34); Mean Corpuscular Volume 96.4 fl (80-100); Mean Platelet Volume 8.9 fl (7.4-10.4); Platelet Count Result 324 k/mm3 (150-375); Red Blood Count 4.44 M/mm3 (4.2-5.4); White Blood Count 9.1 K/mm3 (4.5-10.0)
[2025-05-03 09:28] LABS: Alanine Aminotransferase 27 U/L (6-35); Albumin Level 4.1 g/dL (3.5-5.1); Alkaline Phosphatase 65 U/L (38-126); Anion Gap 8 mmol/L (4-12); Aspartate Amino Transferase 27 U/L (14-36); Bilirubin,Total 0.5 mg/dL (0.2-1.3); Blood Urea Nitrogen 13 mg/dL (7-17); Calcium 9.3 mg/dL (8.4-10.2); Carbon Dioxide 23 mmol/L (22-30); Chloride 107 mmol/L (98-107); Cholesterol 229 mg/dL (0-200); Estimated Glomerular Filt Rate > 60; Glucose 94 mg/dL (65-110); HDL Direct 49 mg/dL; Potassium 4.5 mmol/L (3.4-5.0); Sodium 138 mmol/L (137-145); Total Protein 7.5 g/dL (6.3-8.2); Triglycerides 243 mg/dL (<150)
[2025-05-03 09:29] LABS: Rheumatoid Factor. < 12.0 IU/ML (<12)
[2025-05-03 09:39] LABS: LDL Cholesterol Direct 109 mg/dL
[2025-05-03 10:01] LABS: Erythrocyte Sedimentation Rate 15 mm/hr (0-20)
[2025-05-03 10:11] LABS: Add Urine Microscopic? YES; Appearance Urine Clear (Clear); Bacteria Urine Rare /hpf; Bilirubin Urine Negative (Negative); Blood Urine Negative (Negative); Color Urine Yellow (Yellow); Glucose Urine UA Negative (Negative); Ketones Urine Trace mg/dL (Negative); Leukocyte Esterase Ur Trace LEU/UL (Negative); Nitrate Urine Negative (Negative); Non Pathogenic Casts 0-2; Protein Urine Negative (Negative); RBC Urine 0-2 /hpf (0-2); Specific Grav Ur 1.021 (1.001-1.035); Squamous Epithelial Cell Urine Few /hpf (Few); Urobilinogen Urine 0.2 mg/dL (<2.0); WBC Urine 0-5 /hpf (0-3)
[2025-05-03 10:38] LABS: Free T4 Free Thyroxine 1.08 ng/dL (0.78-2.19); Vitamin D 25 Hydroxy 16.8 ng/mL
[2025-05-03 10:42] LABS: Creatinine Urine 126.9 mg/dL
[2025-05-03 10:45] LABS: MALB Creatinine Ratio 4.8 mg/g (0-30); Microalbumin Urine Random 6.1 mg/L (0-16.7)
== END 2025-05-03 08:29 | disposition home or self-care (01) ==
LOC: ANHLAB 08:33
PROVIDERS: PCP Emergency Medicine; Visit Provider Emergency Medicine
DX: Z00.00 Encounter for general adult medical examination without abnormal findings (principal); E78.5 Hyperlipidemia, unspecified; I10 Essential (primary) hypertension; M54.50 Low back pain, unspecified
CPT/HCPCS: 36415; 80053; 80061; 81001; 82043; 82306; 83036; 84439; 84443; 85027; 85652; 86038; 86039; 86430

== ENCOUNTER 2025-05-14 11:36 | Emergency (ER) | payer OTHER, SELFPAY ==
--- NOTE | ~2025-05-14 | XR_ITS ---
Clinical Indication: Cough PA and lateral views of the chest: Comparison: 03/25/2025 Findings: The lungs are clear, without evidence of focal consolidation or pleural effusion. Cardiome diastinal silhouette is within normal limits. Bones and soft tissues are unremarkable. Impression: Normal chest. Reviewed, dictated and finalized at location . Impression: Normal chest.
[2025-05-14 11:44] VITALS: BP 138/80; PULSE 89; RESP 20; O2SAT 95
[2025-05-14 11:45] VITALS: BP 138/80; PULSE 89; RESP 20; TEMP 36.5; O2SAT 95
--- OUTSIDE RECORDS SUMMARY | 2025-05-14 12:36 | XMS_ITS | Data Portability ---
Author Organization [facility] MARIODayana Hernandez Address [address] [place] [address] Care Team Providers Care Director Learning Services Name Role Phone BEKAH JOAQUIN Store Host Assessment No assessment recorded. Plan of Treatment Reminders Order Date Submit Date Provider Last Modified By Organization Details Last Modified Time Details Appointments None recorded. Lab urinalysi s, dipstick 2021 022 [email or web address] 1 In-Office Order, Internal Use Only DO Not Attach Compendium DO Not Attach Compendium, Do Not Delete/merge, [id number] 2 17:05:42 bacterial vaginosis score, IHSAN+probe , vaginal fluid (OBS) 2021 022 REMI [facility], [address], [place], [address], 2 14:09:27 pap, IG + HPV, cervical - please use Z11.51 in addition to code above for HPV testing. 2017 018 REMI [facility], [address], [place], [address], 8 06:19:00 urinalysi s, dipstick 2017 018 edvin In-Office Order, Internal Use Only DO Not Attach Compendium DO Not Attach Compendium, Do Not Delete/merge, [id number] 8 13:38:46 bacterial vaginosis + vaginitis panel, vaginal - Z11.3, Z20.0 2017 018 [facility], [address], [address], [place], [address], 8 16:19:54 HSV (1+2) DNA, qual, PCR, unspecifi ed specimen - Z11.3, Z20.2 2017 018 [facility], [address] [place] [address], [address], [place], [address], 8 16:19:55 culture, vaginal/r ectal, streptoco ccus group B - Z11.3, Z20.2 2017 018 [facility], [address] [place] [address], [address], [place], [address], 8 16:19:56 Referral None recorded. Procedures None recorded. Surgeries None recorded. Imaging MAMMO, screening , bilateral 2021 022 [facility], [address], [place], [address], 2 10:30:17 MAMMO, screening , bilateral 2017 018 [facility], [address], [place], [address], 8 11:23:33 PFT Pulmonary Function Tests - [facility] schedule [facility] [address] [place], [address], 7 12:12:12 Medication Orders oxybutyni n chloride 5 mg tablet 2017 018 [email or web address] 1 [facility] #[id number], [address], [place], [place], [id number], 2 17:04:32 Premarin 0.625 mg/gram vaginal cream 2017 018 [email or web address] 1 [facility] #[id number], [address], [place], [place], [id number], 2 17:04:22 multivita min tablet 2017 018 [facility] #28753, [address], [place], [place], [id number], 8 13:38:46 Calcium with Vitamin D 600 mg-10 mcg (400 unit) tablet 2017 018 [facility] #58685, [address], [place], [place], [id number], 8 13:38:46 metronida zole 500 mg tablet 2017 018 [facility] 1 [facility] #80463, [address], [place], [place], [id number], 2 17:04:25 lisinopri l 40 mg tablet [address] [facility]97197, [address], [place], [place], [id number], 8 11:18:56 fluticaso ne propionat e 50 mcg/actua tion nasal spray,[facility] [address] [facility] #67547, [address], [place], [place], [id number], 8 11:19:07 Qvar 80 mcg/actua tion Metered Aerosol oral inhaler [address] [facility] #59083, [address] [place], [place], [id number], 8 11:18:12 ProAir HFA 90 mcg/actua tion aerosol inhaler 2015 016 [facility] #34550, [address] , [place], [place], [id number], 8 11:17:56 clonidine HCl 0.1 mg tablet 2015 016 eewig Not available 6 14:09:55 lisinopri l 20 mg tablet 2015 016 [facility] #25637, [address], [place], [place], [id number], 8 11:18:38 pravastat in 40 mg tablet 2015 016 [facility] #94685, [address] , [place], [place], [id number], 8 11:18:16 Patient TargetsNo targets recorded. Patient Instructions Encounter Date Encounter Id Patient Instructions Last Modified By Organization Details Last Modified Time 03/29/2016 [id number] learning about high cholesterol [email or web address] Not available 03/30/2016 12:08:00 high cholesterol: care instructions [email or web address] Not available 03/30/2016 12:08:00 Offered patient a referral to counseling d/t recent loss of 2 family members - patient declined referral at this time eewig Not available 03/29/2016 16:04:53 02/27/2018 [id number] atrophic vaginitis: care instructions mwasserman Not available 02/27/2018 11:53:49 mammogram: about this test mwasserman Not available 02/27/2018 13:38:46 mammogram screening patient instructions mwasserman Not available 02/27/2018 13:38:46 bacterial vaginosis: care instructions mwasserman Not available 02/27/2018 11:56:15 01/08/2022 [id number] well visit, women 50 to 65: care instructions Not available 01/24/2022 13:55:56 learning about breast cancer screening Not available 01/08/2022 17:05:42 Reason for Referral None Reported. Results Created Date Observation Date Name Description Value Unit Range Abnormal Flag Note LastModifiedBy Organization Detail LastModifiedTime 02/28/20 18 02/27/2018 urina lysis , dipst ick Leukocytes Trace Not Available In-Offi ce Order Internal Use Only DO Not Attach Compendium DO Not Attach Compendium, Do Not Delete/merge, 02/27/2018 11:25:19 02/28/20 18 02/27/2018 urina lysis , dipst ick Nitrite negati ve Not Available In-Office Order Internal Use Only DO Not Attach Compendium DO Not Attach Compendium, Do Not Delete/merge, 02/27/2018 11:25:19 02/28/20 18 02/27/2018 urina lysis , dipst ick Urobilinogen .2 Not Available In-Of fice Order Internal Use Only DO Not Attach Compendium DO Not Attach Compendium, Do Not Delete/merge, 02/27/2018 11:25:19 02/28/20 18 02/27/2018 urina lysis , dipst ick Protein Negati ve Not Available In-Office Order Internal Use Only DO Not Attach Compendium DO Not Attach Compendium, Do Not Delete/merge, 02/27/2018 11:25:19 02/28/20 18 02/27/2018 urina lysis , dipst ick pH 5.5 Not Available In-Office Order Internal Use Only DO Not Attach Compendium DO Not Attach Compendium, Do Not Delete/merge, 02/27/2018 11:25:19 02/28/20 18 02/27/2018 urina lysis , dipst ick Blood Negati ve Not Available In-Office Order Internal Use Only DO Not Attach Compendium DO Not Attach Compendium, Do Not Delete/merge, 02/27/2018 11:25:19 02/28/20 18 02/27/2018 urina lysis , dipst ick Specific Wells 1.010 Not Available In-Off ice Order Internal Use Only DO Not Attach Compendium DO Not Attach Compendium, Do Not Delete/merge, 02/27/2018 11:25:19 02/28/20 18 02/27/2018 urina lysis , dipst ick Ketone Negati ve Not Available In-Office Order Internal Use Only DO Not Attach Compendium DO Not Attach Compendium, Do Not Delete/merge, [id number] 02/27/2018 11:25:19 02/28/20 18 02/27/2018 urina lysis , dipst ick Bilirubin Negati ve Not Available In-Office Order Internal Use Only DO Not Attach Compendium DO Not Attach Compendium, Do Not Delete/merge, [id number] 02/27/2018 11:25:19 02/28/20 18 02/27/2018 urina lysis , dipst ick Glucose Negati ve Not Available In-Office Order Internal Use Only DO Not Attach Compendium DO Not Attach Compendium, Do Not Delete/merge, [id number] 02/27/2018 11:25:19 02/28/20 18 03/01/2018 pap, IG + HPV, cervi yue diagnosis: Burke BANERJEE ARELI FOR INTRA EPITH ELIAL SANDRA Morris AND FERNANDO TIWARI . Not Available [facility] ([facility]) [address], [place], [address], 03/02/2018 06:19:00 02/28/20 18 03/01/2018 pap, IG + HPV, cervi yue specimen adequacy: Burke grullon Satis facto ry for evalu ation . No endoc ervic al compo nent is ident ified . Not Available [facility] ([facility]) [address], [place], [address], 03/02/2018 06:19:00 02/28/20 18 03/01/2018 pap, IG + HPV, cervi yue clinician provided ICD10: Burke grullon Z01.4 19 Z11.5 1 Z20.2 Not Available [facility] ([facility]) [address], [place], [address], 03/02/2018 06:19:00 02/28/20 18 03/01/2018 pap, IG + HPV, cervi yue performed by: Burke Chen, Cytot echno logis t (ASCP ) Not Available [facility] ([facility]) [address] [place], [address], 03/02/2018 06:19:00 02/28/20 18 03/01/2018 pap, IG + HPV, cervi yue . . Not Available [facility] ([facility]) [address] [place], [address], 03/02/2018 06:19:00 02/28/20 18 03/01/2018 pap, IG + HPV, cervi yue note: Commen t The Pap smear is a scree nima test desig chasity to aid in the detec tion of devi ligna nt and malig nant condi tions of the uteri ne cervi x. It is not a diagn ostic proce dure and shoul d not be used as the sole means of detec ting cervi yue cance r. Both false -posi tive and false -nega tive repor ts do occur . Not Available [facility] ([facility]) [address] [place], [address], 03/02/2018 06:19:00 02/28/20 18 03/01/2018 pap, IG + HPV, cervi yue test methodology: Commen t This liqui d based ThinP rep(R ) pap test was scree chasity with the use of an image guide brenda galo. Not Available [facility] ([facility]) [address] [place], [address], 03/02/2018 06:19:00 02/28/20 18 03/02/2018 pap, IG + HPV, cervi yue HPV aptima Negati ve negati ve This test detec ts fourt een high- risk HPV types (16/1 8/31/ 33/35 /39/4 5/ 51/52 /56/5 8/59/ 66/68 ) witho ut diffe renti ation . Not Available [facility] ([facility]) [address] [place], [address], 03/02/2018 06:19:00 02/28/20 18 03/01/2018 bacte rial vagin osis + vagin itis panel , vagin al atopobium vaginae High - 2 score abnormal Not Available [facility] ([facility]) [address] [place], [address], 03/09/2018 16:19:54 02/28/20 18 03/01/2018 bacte rial vagin osis + vagin itis panel , vagin al bvab 2 Modera te - 1 score Not Available [facility] ([facility]) [address] [place], [address], 03/09/2018 16:19:54 02/28/20 18 03/01/2018 bacte rial vagin osis + vagin itis panel , vagin al megasphaera 1 Low - 0 score Calcu late total score by dorian alvarez the 3 indiv idual bacte rial vagin osis (BV) marke r score s toget her. Total score is inter prete d as follo ws: Total score 0-1: Indic ates the absen ce of BV. Total score 2: Indet ermin ate for BV. Addit ional clini yue data shoul d be evalu ated to estab kimberly a diagn osis. Total score 3-6: Indic ates the prese nce of BV. This test was devel oped and its perfo rmanc e ember cteri stics deter mined by [facility]. It has not been clear ed or appro bernard by the Food and Drug Admin istra tion. The FDA has deter mined that such clear ance or appro weston is not neces qasim. Not Available [facility] ([facility]) [address] [facility], [place], [address], 03/09/2018 16:19:54 02/28/20 18 03/02/2018 bacte rial vagin osis + vagin itis panel , vagin al trinidad albicans, IHSAN Negati ve negati ve Not Available [facility] ([facility]) [address] [place], [address], 03/09/2018 16:19:54 02/28/20 18 03/02/2018 bacte rial vagin osis + vagin itis panel , vagin al trinidad glabrata, IHSAN Negati ve negati ve This test was devel anthony and its perfo rmanc e ember cteri stics deter mined by [facility]. It has not been clear ed or appro bernard by the Food and Drug Admin istra tion. The FDA has deter mined that such clear ance or appro weston is not neces qasim. Not Available [facility] ([facility]) [address] [facility], [place], [address], 03/09/2018 16:19:54 02/28/20 18 03/02/2018 bacte rial vagin osis + vagin itis panel , vagin al trich vag by IHSAN Negati ve negati ve Not Available [facility] ([facility]) [address] [place], [address], 03/09/2018 16:19:54 02/28/20 18 03/02/2018 bacte rial vagin osis + vagin itis panel , vagin al chlamydia trachomatis, IHSAN Negati ve negati ve Not Available [facility] ([facility]) [address] [place], [address], 03/09/2018 16:19:54 02/28/20 18 03/02/2018 bacte rial vagin osis + vagin itis panel , vagin al neisseria gonorrhoeae, IHSAN Negati ve negati ve Not Available [facility] ([facility]) [address] [place], [address], 03/09/2018 16:19:54 02/28/20 18 03/09/2018 HSV (1+2) DNA, qual, PCR, unspe cifie d speci men hsv 1 IHSAN Commen t negati ve We are UNABL E to relia aranza deter mine a resul t for the speci men due to the prese nce of PCR inhib itor( s) in the speci men submi tted. If clini sinan indic ated, pleas e recol lect an addit ional speci men for testi ng. Not Available [facility] ([facility]) [address] [facility] [address], [place], [address], 03/09/2018 16:19:55 02/28/20 18 03/09/2018 HSV (1+2) DNA, qual, PCR, unspe cifie d speci men hsv 2 IHSAN Commen t negati ve We are UNABL E to relia aranza deter mine a resul t for the speci men due to the prese nce of PCR inhib itor( s) in the speci men submi tted. If clini sinan indic ated, pleas e recol lect an addit ional speci men for testi ng. Not Available [facility] ([facility]) [address] [facility], [place], [address], 03/09/2018 16:19:55 02/28/20 18 03/01/2018 cultu re, vagin al/re ctal, strep tococ cus group B strep gp B IHSAN Negati ve negati ve Cente rs for Disea se Contr ol and Preve ntion (CDC) and Ameri can Congr ess of Obste trici ans and Gynec ologi sts (ACOG ) guide lines for preve ntion of perin atal group B strep tococ yue (GBS) disea se speci fy co-co llect ion of a vagin al and recta l swab speci men to maxim ize sensi tivit y of GBS detec tion. Per the CDC and ACOG, swabb ing both the lower vagin a and rectu m subst antia lly incre ases the yield of detec tion leisa red with sampl ing the vagin a alone . Penic illin G, ampic illin , or cefaz akbar are indic ated for intra partu m proph ylaxi s of perin atal GBS colon izati on. Refle x susce ptibi lity testi ng shoul d be perfo rmed prior to use of clind amyci n only on GBS isola nia from penic illin -don rgic women who are consi dered a high risk for anaph ylaxi s. Treat ment with vanco mycin witho ut addit ional benji bae is warra nted if resis tance to clind amyci n is noted . Not Available [facility] ([facility]) [address] [facility], [place], [address], 03/09/2018 16:19:56 01/09/20 22 01/15/2022 NUSWA B VG+, HSV trich vag by IHSAN Negati ve negati ve Not Available [facility] ([facility]) [address] [place], [address], 01/18/2022 14:09:27 01/09/20 22 01/15/2022 NUSWA B VG+, HSV chlamydia trachomatis, IHSAN Negati ve negati ve Not Available [facility] ([facility]) [address] [facility], [place], [address], 01/18/2022 14:09:27 01/09/20 22 01/15/2022 NUSWA B VG+, HSV neisseria gonorrhoeae, IHSAN Negati ve negati ve Not Available [facility] ([facility]) [address] [place], [address], 01/18/2022 14:09:27 01/09/20 22 01/18/2022 NUSWA B VG+, HSV atopobium vaginae High - 2 score abnormal Not Available [facility] ([facility]) [address] [place], [address], 01/18/2022 14:09:27 01/09/20 22 01/18/2022 NUSWA B VG+, HSV bvab 2 Low - 0 score Not Available [facility] ([facility]) [address] [place], [address], 01/18/2022 14:09:27 01/09/20 22 01/18/2022 NUSWA B VG+, HSV megasphaera 1 Low - 0 score Calcu late total score by dorian alvarez the 3 indiv idual bacte rial vagin osis (BV) marke r score s toget her. Total score is inter prete d as follo ws: Total score 0-1: Indic ates the absen ce of BV. Total score 2: Indet ermin ate for BV. Addit ional clini yue data shoul d be evalu ated to estab kimberly a diagn osis. Total score 3-6: Indic ates the prese nce of BV. This test was devel oped and its perfo rmanc e ember cteri stics deter mined by [facility]. It has not been clear ed or appro bernard by the Food and Drug Admin istra tion. Not Available [facility] ([facility]) [address] [place], [address], 01/18/2022 14:09:27 01/09/20 22 01/18/2022 NUA B VG+, HSV trinidad albicans, IHSAN Negati ve negati ve Not Available [facility] ([facility]) [address] [place], [address], 01/18/2022 14:09:27 01/09/20 22 01/18/2022 NUSWA B VG+, HSV trinidad glabrata, IHSAN Negati ve negati ve Not Available [facility] ([facility]) [address] [place], [address], 01/18/2022 14:09:27 01/09/20 22 01/18/2022 NUSWA B VG+, HSV hsv 1 IHSAN Negati ve negati ve Not Available [facility] ([facility]) [address] [place], [address], 01/18/2022 14:09:27 01/09/20 22 01/18/2022 NUSWA B VG+, HSV hsv 2 IHSAN Negati ve negati ve Not Available [facility] ([facility]) [address], [place], [address], 01/18/2022 14:09:27 01/09/20 22 01/08/2022 urina lysis , dipst ick Leukocytes Negati ve Not Available In-Office Order Internal Use Only DO Not Attach Compendium DO Not Attach Compendium, Do Not Delete/merge, 01/08/2022 16:43:51 01/09/20 22 01/08/2022 urina lysis , dipst ick Nitrite negati ve Not Available In-Office Order Internal Use Only DO Not Attach Compendium DO Not Attach Compendium, Do Not Delete/merge, 01/08/2022 16:43:51 01/09/20 22 01/08/2022 urina lysis , dipst ick Urobilinogen .2 Not Available In-Of fice Order Internal Use Only DO Not Attach Compendium DO Not Attach Compendium, Do Not Delete/merge, 01/08/2022 16:43:51 01/09/20 22 01/08/2022 urina lysis , dipst ick Protein Negati ve Not Available In-Office Order Internal Use Only DO Not Attach Compendium DO Not Attach Compendium, Do Not Delete/merge, 01/08/2022 16:43:51 01/09/20 22 01/08/2022 urina lysis , dipst ick pH 5.5 Not Available In-Office Order Internal Use Only DO Not Attach Compendium DO Not Attach Compendium, Do Not Delete/merge, 01/08/2022 16:43:51 01/09/20 22 01/08/2022 urina lysis , dipst ick Blood Negati ve Not Available In-Office Order Internal Use Only DO Not Attach Compendium DO Not Attach Compendium, Do Not Delete/merge, 01/08/2022 16:43:51 01/09/20 22 01/08/2022 urina lysis , dipst ick Specific Wells 1.030 Not Available In-Off ice Order Internal Use Only DO Not Attach Compendium DO Not Attach Compendium, Do Not Delete/merge, [id number] 01/08/2022 16:43:51 01/09/20 22 01/08/2022 urina lysis , dipst ick Ketone Negati ve Not Available In-Office Order Internal Use Only DO Not Attach Compendium DO Not Attach Compendium, Do Not Delete/merge, [id number] 01/08/2022 16:43:51 01/09/20 22 01/08/2022 urina lysis , dipst ick Bilirubin Negati ve Not Available In-Office Order Internal Use Only DO Not Attach Compendium DO Not Attach Compendium, Do Not Delete/merge, [id number] 01/08/2022 16:43:51 01/09/20 22 01/08/2022 urina lysis , dipst ick Glucose Negati ve Not Available In-Office Order Internal Use Only DO Not Attach Compendium DO Not Attach Compendium, Do Not Delete/merge, [id number] 01/08/2022 16:43:51 10/23/20 18 10/21/2018 MAMMO , scree nima, bilat eral No observ ation record ed. [facility] [address], [place], [address], 10/24/2018 08:20:27 Result Notes None recorded. Problems Name Problem SNOMED Code Status Onset Date Resolution Date Notes Provider Name and Address Organization Details Recorded Time Bladder muscle dysfunction - overactive Active 2017 Castro hernandez, [place] - [facility] 8 11:55:13 Atrophic vaginitis 03233198 Active 2017 [place] [facility] 8 11:55:17 Bacterial vaginosis 195171159 Active 2017 [place] [facility] 8 11:56:33 Asthma 697582893 Active [place] [facility] 5 12:38:12 Essential hypertension 93898727 Active Moraima Brunner PA-C Attn: Accounting ,[address] [facility], [place], [address] , [place] - [facility] 6 14:13:13 Overweight 740288089 Active Castro Garcia [place] [facility] 5 12:38:12 Gastroesophag eal reflux disease 604078069 Active [place] [facility] 5 12:38:12 Dermatitis Active Moraima Brunner PA-C Attn: Accounting ,[address] [facility], [place], [place], [address] [place] [address] , [place] - [facility] 5 16:22:04 Retinitis pigmentosa 99339459 Active [place] [facility] 5 12:38:12 Hearing loss 22582777 Active [place] [facility] 5 12:38:12 Blood glucose outside reference range [id number] Alicia Brunner PA-C Attn: Accounting ,[address] [facility], [place], [place], [address] [place] [address] , [place] - [facility] 6 09:33:56 Onychomycosis of toenails 139976358 Active Castro hernandez[place] [facility] 5 12:38:12 Tobacco dependence syndrome 89987470 Alicia Brunner PA-C Attn: Accounting ,[address] [facility], [place], [place], [address] [place] [address] , [place] [facility] 6 09:33:56 Acute lower urinary tract infection 371284522 Active Castro [place] [facility] 6 13:16:24 Hyperlipidemi a 01606591 Alicia Brunner PA-C Attn: Accounting ,[address] [facility], [place], [place], [address] [place] [address] , [place] [facility] 6 16:04:52 Hypertensive urgency [id number] Alicia Brunner PA-C Attn: Accounting ,[address] [place], [place], [address] [place] [address] , [place] - [facility] 6 16:04:52 Dyspnea [id number] Alicia Brunner PA-C Attn: Accounting ,[address] [facility], [place], [address] , [facility] 6 09:17:40 Problem Notes None recorded. Procedures Surgical History Date Name Laterality Status Provider Name and Address Organization Details Recorded Time 8 Date of Last Pap Smear completed YULI Lin [facility] 02/27/2018 11:19:33 5 Most Recent Mammogram completed YULI Lin [facility] 02/27/2018 11:20:11 1 Eye Surgery completed YULI Zee [facility] 01/27/2015 16:05:17 9 Caesarean Section completed YULI Zee [facility] 01/27/2015 16:05:17 7 Caesarean Section completed YULI Lin [facility] 02/27/2018 11:20:38 5 Caesarean Section completed Monica Blanca MA [facility] 02/27/2018 11:20:45 Knee arthroscopy/contreras rgery completed YULI Quezada [facility] 01/08/2022 16:43:04 Knee arthroscopy/contreras rgery completed YULI Quezada [facility] 01/08/2022 16:43:16 Imaging Results None recorded. Procedure Notes None recorded. Medical Equipment None Reported. Allergies No known drug allergies Medications Name Sig Start Date Stop Date Status Note LastModified by Organization Details LastModified Time multivitami n tablet Take 1 tablet every day by oral route. 2017 active Not Available Not Available Not Avai lable losartan 50 mg tablet active Not Available Not Available No t Available cyclobenzap rine 10 mg tablet active Not Available Not Available Not Available metformin 500 mg tablet 02/27 completed Not Available Not Available Not Available Qvar 80 mcg/actuati on Metered Aerosol oral inhaler Inhale 2 puffs twice a day by inhalatio n route. 02/27 completed Not Available Not Available Not Available clonidine HCl 0.1 mg tablet Take 2 tablets by oral route. 04/08 completed Not Available Not Available Not Available prednisone 10 mg tablet active Not Available Not Available Not Available diphenhydra mine 50 mg capsule Take 1 capsule every 4 hours by oral route as needed for 5 days. 04/08 completed Not Available Not Available Not Available atorvastati n 10 mg tablet active Not Available Not Available Not Available pravastatin 40 mg tablet Take 1 tablet every day by oral route in the evening. 02/27 completed Not Available Not Available Not Available fluconazole 150 mg tablet TAKE ONE TABLET BY MOUTH DIRECTED active Not Available Not Available No t Available meloxicam 15 mg tablet TAKE 1 TABLET BY MOUTH DAILY active Not Available Not Available No t Available metronidazo le 0.75 % (37.5 mg/5 gram) vaginal gel INSERT ONE APPLICATO RFUL VAGINALLY AT BEDTIME FOR 5 DAYS active Not Available Not Available No t Available lisinopril 20 mg tablet TAKE 1 TABLET BY MOUTH DAILY active Not Available Not Available No t Available simvastatin 10 mg tablet active Not Available Not Available Not Available terconazole 0.8 % vaginal cream Insert 1 applicato rful every day by vaginal route. 01/08 completed Not Available Not Available Not Available metronidazo le 500 mg tablet TAKE 1 TABLET BY MOUTH TWICE DAILY FOR 10 DAYS active Not Available Not Available No t Available ciprofloxac in 500 mg tablet Take 1 tablet every 12 hours by oral route. 02/27 completed Not Available Not Available Not Available tramadol 50 mg tablet active Not Available Not Available No t Available terbinafine HCl 250 mg tablet TAKE 1 TABLET BY MOUTH DAILY 02/27 completed Not Available Not Available Not Available baclofen 10 mg tablet TAKE 1 TABLET BY MOUTH THREE TIMES DAILY NEEDED FOR MUSCLE PAIN active Not Available Not Available No t Available hydrocodone 7.5 mg-acetamin ophen 325 mg tablet TAKE 1 TABLET BY MOUTH EVERY 4 HOURS NEEDED FOR PAIN active Not Available Not Available No t Available cephalexin 500 mg capsule 10/28 completed Not Available Not Available Not Available simvastatin 20 mg tablet active Not Available Not Available Not Available triamcinolo ne acetonide 0.1 % topical ointment APPLY A THIN LAYER TO THE AFFECTED AREA(S) BY TOPICAL ROUTE 2 TIMES PER DAY 11/11 completed Not Available Not Available Not Available nystatin 100,000 unit/gram topical cream APPLY TOPICALLY TO THE AFFECTED AREA TWICE DAILY active Not Available Not Available No t Available ranitidine 150 mg tablet Take 1 tablet every day by oral route at bedtime. 11/11 completed Not Available Not Available Not Available lisinopril 10 mg tablet Take 1 tablet every day by oral route. active Not Available Not Available No t Available promethazin e 25 mg tablet active Not Available Not Available Not Available indomethaci n 25 mg capsule active Not Available Not Available Not Available ergocalcife rol (vitamin D2) 1,250 mcg (50,000 unit) capsule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
--- OUTSIDE RECORDS SUMMARY | 2025-05-14 12:36 | XMS_ITS | Clinical Summary ---
[facility] Organization [facility] Address [address] [place] [address] [place] [address] Care Team Providers Care Tent Worker Name Role Phone Cleveland Tovar MD Primary Care Provider [phone] Allergies No known active allergies Medications lisinopriL (PRINIVIL) 20 mg tablet Take 20 mg by mouth. Active meloxicam (MOBIC) 15 mg tablet 03/22/2021 Active ergocalciferol (VITAMIN D2) 50,000 unit capsule TAKE ONE CAPSULE BY MOUTH WEEKLY 03/01/2021 Active Active Problems Problem Noted Date Diagnosed Date MGUS (monoclonal gammopathy of unknown significa nce) 04/08/2021 Elevated IgE level 03/24/2021 Family History Medical History Relation Name Comments Diabetes Brother 3 Heart Disease Father Diabetes Mother Cancer Sister Relation Name Status Comments Brother 1 Alive Brother 2 Alive Brother 3 Alive Daughter 1 Alive Daughter 2 Alive Father Mother Alive Sister Social History Tobacco Use Types Packs/Day Years Used Date Smoking Tobacco: Every Day Cigarettes Smokeless Tobacco: Never Alcohol Use Standard Drinks/Week Comments Yes 0 (1 standard drink = 0.6 oz pur e alcohol) Comments Unknown Sex and Gender Information Value Date Recorded Sex Assigned at Not on file Legal Sex Female 10:39 AM CDT Gender Identity Not on file Sexual Orientation Not on file Last Filed Vital Signs Vital Sign Reading Time Taken Comments Blood Pressure 122/76 03/24/2021 3:05 PM CDT Pulse 92 03/24/2021 3:05 PM CDT Temperature 36.5 C (97.7 F) 03/24/2021 3:05 PM CDT Respiratory Rate - - Oxygen Saturation 98% 03/24/2021 3:05 PM CDT Inhaled Oxygen Concentration - - Weight 74.7 kg (164 lb 9.6 oz) 03/24/2021 3:05 P M CDT Height 165.1 cm (5' 5) 03/24/2021 3:05 PM CDT Body Mass Index 27.39 03/24/2021 3:05 PM CDT Plan of Treatment Health Maintenance Due Date Last Done Comments DTAP/TDAP/TD VACCINES (1 - Tdap) 1981 HPV/Cotest (21-29) 1983 CERVICAL CANCER SCREENING 1992 HPV/Cotest (30-65) 1992 PAP SMEAR 1992 BREAST CANCER SCREENING 2002 COLORECTAL SCREENING 2007 Colorectal Cancer Screening 2007 FIT-DNA Q 3 years 2007 FIT/FOBT Q 1 year 2007 Flex Sig/CT Colonography Q 5 years 2007 ZOSTER VACCINE (1 of 2) 2012 INFLUENZA VACCINE (#1) 2025 RSV VACCINE (60+ or ) (1 - 1-dose 75+ series) 2037 Care Teams Tent Worker Relationship Specialty Start Date End Date Cleveland Tovar MD [address] [place] [address] [id number] PCP - General Emergency Medicine 03/24/21
--- OUTSIDE RECORDS SUMMARY | 2025-05-14 12:36 | XMS_ITS | Data Portability ---
Author Organization [place] [facility], Main Office Address [address] [place] [address] Care Team Providers Care Daylight Driller Name Role Phone LAMAR MCCLAIN Primary Care Provider LAMAR MCCLAIN Referring Provider [phone] Assessment Encounter Date Assessment Date Assessment LastModified by Organization Details LastModified Time 12/27/2023 12/27/2023 patient returns. She did have the C-reactive protein and sedimentation rate drawn yesterday. The C-reactive protein was mildly elevated at 2.2 normal is less than 1. The sedimentation rate was mildly elevated at 24 normal is 0-20. Patient was notified of the abnormal results and I recommended that she come in for a knee aspiration to rule out infection as a cause for her increased pain. On exam today she has a mild effusion the right knee mild anterior knee soft tissue swelling and warmth. Incision is well healed. I recommended aspirating the right knee. After thorough Betadine scrub and alcohol application, the knee was aspirated through a lateral parapatellar approach using sterile technique. 8 cc of somewhat cloudy fluid was aspirated. Fluid was sent for culture, cell count with differential and crystals. We will ask the lab to hold the cultures for 21 days. I have discussed with patient and her that I am worried that she may have an infection right knee. The fact that she is on amoxicillin currently might prevent cultures from growing bacteria if the knee is infected and the bacteria is sensitive to amoxicillin which case a subsequent aspiration would be necessary after she has been off the amoxicillin for a couple of weeks. If it 8 weeks out and has indolent infection, the best treatment to address the infection would a 2 stage revision with explantation the components followed by antibiotics and reimplantation. I have discussed this with. She is scheduled to come back in 1 week and we will check on the culture results the meantime I will let her know if the culture show infection. She did sleep much better last night with the tramadol. Not available 12/27/2023 15:11:02 01/02/2024 01/02/2024 HPI: Patient returns. She is here for follow-up of aspiration of the right knee. At this point cultures are all negative. The aspiration itself showed who at 8300 white cells 5000 red cells 80% neutrophil no crystals seen. Patient is still complaining of pain in the knee. She stopped her amoxicillin 5 days ago as requested. She still feels pain when she is bending the knee and it hurts throughout the day. Patient is very active everyday. She states that she cannot sit still so she is extremely active and by the evening the knees more sore. She has not been doing her exercises on a regular basis. Physical exam: Patient has a very mild effusion in the right knee. No redness noted. She has some mild pain with palpation of the patella. Range of motion is from 0-120 degrees. And 120 she yells out in pain. No increased swelling in either lower extremity. Impression: Patient his continued pain and soreness in the knee. She has a little bit stiff and seems to have more pain with flexion more than anything with regard to her knee. She has not been doing her exercises on regular basis and I recommended that she work harder every hour to do the exercises so that she gets better flexion is this may help with her symptoms. Aspiration did show over 8000 white cells and this is not completely benign and does not rule out infection. Again she was on amoxicillin some cultures could be not accurate as to whether not anything is going to grow. They are going to continue to hold the cultures for 21 days. She is going to be coming back on January 15 for re-evaluation. She has continued symptoms and effusion in the knee we will do another aspiration of the knee. We will try to get a [employer] aspiration kit as well . Not available 01/02/2024 16:55:03 01/16/2024 01/16/2024 HPI: Patient returns. She is still complaining of pain in the right knee and right leg. She is also complaining of some swelling in the right calf. She complains that the knee is painful trained go up and stairs or trying to squat. She does not feel there has been any improvement in her symptoms at this point. She remains taking Tylenol every 6 hours and tramadol p.r.n.. She has been off antibiotics for 2 weeks at this point. Patient is also complaining and numbness in her left leg and left foot. She states this has been going on since surgery. It is intermittent. Occasionally she will have some numbness in the right plantar foot. She is not complaining any back pain. Physical exam: Patient's right knee has no redness. She has mild effusion. Range of motion is from 0-125 degrees. She has normal stability with flexion extension. She has pain with flexion and says that the knee hurts when she flexes it. Trace edema in the right calf non the ankle or foot. She has normal motor function to all muscle groups in both lower extremities. She has a 1+knee jerk bilaterally. Her left knee has 2+ knee jerk and on the right is 1+. She has normal sensation to both lower extremities to light touch. 2+ dorsalis pedis pulse in both feet. She is walking with a cane. After Betadine and alcohol swab I was able to aspirate 12 cc of blood tinged serous fluid. Impression: Patient remains having pain in the right knee. She is also complaining of numbness in the left leg and foot as well as a little bit of numbness in right foot. Some her symptoms may be coming from her back. However at this point we need to rule out infection in the knee. Fluid from today will be sent for cultures aerobe and anaerobe I have written orders that they keep the cultures for 3 weeks. Her previous cultures from the aspiration was done approximately a month ago with capped for 3 weeks showed no growth. will obtained a new sed rate and CRP on her today as well. We will have the fluid also evaluated for cell count with diff as well as crystals. We are going to prescribe her a Medrol Dosepak today to see if this will help some of this inflammation that she is having around the knee improved. Due to her history we are not using anti-inflammatori es on her. I will see her in a week for re-evaluation. addendum: Dr. Maury Mera saw and examined the patient also today. She has off amoxicillin for 19 days. Exam is as above. She has mild warmth and mild diffuse soft tissue swelling about the knee. No erythema. Patient cannot take nonsteroidal anti-inflammatory medications. She has been taking Tylenol and she takes a tramadol at night. Her pain is not optimally controlled. For this reason we will prescribe a Medrol Dosepak to address any soft tissue inflammation. I have discussed with her and her the fact that we have not ruled out infection. Not available 01/16/2024 17:28:48 01/23/2024 01/23/2024 HPI: Patient returns. She took the Medrol Dosepak and states that her knee is still sore and supple. She complains of some soreness in the knee and points at the tibial tubercle was she feels some discomfort but also in the tibial area approximately midway down. The knee will get sore and swollen if she is on it for longer periods of time. She does not feel that the Medrol Dosepak made much difference. Patient did have C-reactive protein and sed rate her repeated which both of these have normalized. Cultures that were done 1 week ago from synovial fluid were negative. They are still holding cultures for 3 weeks total. The cell count from the aspiration showed 9,000 white cells with over 80% neutrophils. Physical exam: Patient has a pxrc-ib-ydakmtgm effusion the right knee. No redness or warmth. Range of motion is from 0-130 degrees. She has only mild discomfort with full flexion. She has quite a bit of tenderness of the patellofemoral joint with palpation. No increased swelling in either lower extremity. There is no pain range of motion of the hip. After careful Betadine and alcohol prep 12 cc of blood-tinged serous fluid was removed from the right knee. Needle was changed in fluid was placed into tubes for evaluation by a Synovasure. Impression: Patient is having continued symptoms in the right knee. Cultures were negative and her sed rate and C-reactive protein all normalized. She still had 9000 white blood cell count in her aspiration 1 week ago. Certainly the concern is for infection still given the higher white count and she is now about 3 months out from surgery. Fluid was sent off to the synovaSure for evaluation. I advised the patient I would like her to decrease her activities. She is still doing her exercises 5 or 6 times a day and this may have continue to irritate the knee causing the excess fluid in the irritability in it. Certainly today she seems much better than when she was a week ago when I saw her. The knee does not seem to be quite so hypersensitive and irritated. Once I have the have the results of the fluid analysis I am going to contact the patent. Not available 01/23/2024 17:39:46 01/27/2024 01/27/2024 HPI: Patient returns. She is here for follow-up of her right total knee. She is now 3 months out. She had Synovasure aspiration done 4 days ago. Results showed no evidence of infection. White count was 4100. There has no evidence of bacteria when it was tested. Patient still feels like the knee swells a lot and is tight at times. She has had continuous effusion in the knee since surgery. She is also still complaining of a numbness type sensation in the left lower extremity and occasionally in the right foot. She complains of no back pain at this point. She still states that the knee feels stiff at times and it is sensitive to the touch. Physical exam: Patient has a mild effusion right knee. Range motion is from 0-125 degrees. Her sensitivity of the patellofemoral joint to palpation. No increased swelling lower extremities. Hip range of motion causes no discomfort. impression: Patient has NovaSure aspiration improves at this point there is no infection in the knee. Patient is a very hypersensitive knee at this point and I think it is going to take time for the sensitivity to improve. The swelling in the knee he is going to be the same issue. Unfortunately her body is over producing fluid in the knee which we saw have seen in the past with other patients who continue to make some degree of an effusion in the knee following total knee. Hopefully this will improve with time. I think a lot of her symptoms in her knee we will dissipate over time but it may take up to a year for this to happen. With regard to her numbness that she talks about in the left lower extremity in the right foot I am going to order an EMG study. Dr. Landis asked that this study be done and also refer her to Neurology at [facility] for evaluation as well. I am going to have her see Dr. Landis in approximately 1 month for re-evaluation. Not available 01/27/2024 13:23:57 Plan of Treatment Reminders Order Date Submit Date Provider Last Modified By Organization Details Last Modified Time Details Appointments None recorded. Lab C-reactive protein, quantitati ve, serum or plasma [address] (Lab), [address] [place] [address] [place] [address], [id number], 4 18:27:48 erythrocyt e sedimentat ion rate, QN, blood [address] (Lab), [address] [place] [address] [place] [address], [id number], 4 18:27:48 gram stain, synovial fluid - rt knee please keep for 3 weeks [address] (Lab), [address] [place] [address] [place] [address], [id number], 4 18:27:48 cell count w/ diff, body fluid - rt knee please keep for 3 weeks [address] (Lab), [address] [place] [address] [place] [address], [id number], 4 18:27:48 crystals, synovial fluid - rt knee please keep for 3 weeks 2023 024 [facility] (Lab), [address] [place] [address] [place] [address], [id number], 4 16:26:45 culture, aerobic + anaerobic - rt knee please keep for 3 weeks 2023 024 [facility] (Lab), [address] [place] [address] [place] [address], [id number], 4 10:02:21 Referral neurologis t referral - please contact patient to schedule 2023 024 [email or web address] Not available 10:50:49 Procedures injection/ aspiration joint/burs a (PROC) 2023 024 [email or web address] In-Office Order, Internal Use Only DO Not Attach Compendium DO Not Attach Compendium, Do Not Delete/merge, [id number] 15:22:37 Surgeries None recorded. Imaging XR, pelvis 2023 024 [email or web address] [facility], [address], [place], [address], 13:32:07 Medication Orders Medrol (Damon) 4 mg tablets in a dose pack 2023 024 [facility], [address], [place], [address], 18:27:48 Patient TargetsNo targets recorded. Patient InstructionsNo instructions recorded. Reason for Referral Neurologist Referral for Num bness of lower limb please contact patient to schedule Referring Physician: Murali Valles, Orthopedic Surgery, Encounter Date: 01/27/2024 Results Created Date Observation Date Name Description Value Unit Range Abnormal Flag Note LastModifiedBy Organization Detail LastModifiedTime 12/05/19 24 XR, knee No observ ation record ed. [email or web address] [facility] [address], [place], [address], 12/05/2023 16:45:04 12/27/19 24 12/21/2023 , doppl er, venou s No observ ation record ed. [email or web address] Not Available 2023 11:16:56 01/04/20 24 10/13/2023 elect vidal [facility] am No observ ation record ed. [email or web address] Not Available 2023 16:42:56 01/27/20 24 XR, pelvi s No observ ation record ed. [email or web address] [facility] [address], [place], [address], 01/27/2024 13:19:59 Result Notes None recorded. 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, [address], [place], [address] , [employer] [facility] 3 10:56:26 Pain of right hip joint 1050194180089 02 Active 2022 DARIN Thomas, [employer] [facility] 3 11:21:52 History of right total knee replacemen t 2948488035702 102 Active 2023 Renita Perez CMA null, [employer] [facility] [employer] [facility] 4 15:00:13 Pain in pelvis 94154264 Active 2023 SATINDER Flores, [employer] [facility] [employer] [facility] 4 12:13:47 Numbness of lower limb 329920875 Active 2023 Mariam Carl null, [employer] [facility] 4 12:30:00 Problem Notes None recorded. Procedures Surgical History Date Name Laterality Status Provider Name and Address Organization Details Recorded Time 05/16/20 23 Ortho - Cortisone Injection completed Johnson Park MD [address], [address], [place], [address], [employer] 05/16/2023 10:33:25 03/12/20 22 PAROTIDECTOMY (SURG) completed Not Available [facility] 01/05/2023 13:58:35 11/07/19 Knee Surgery completed Not Available [facility] 023 13:56:32 Imaging Results None recorded. Procedure Notes None recorded. Medical Equipment None Reported. Allergies No known drug allergies Medications Name Sig Start Date Stop Date Status Note LastModified by Organization Details LastModified Time eq stl sft st lax 8.6-50mg tab TAKE 2 TABLETS BY MOUTH TWICE DAILY TO PREVENT CONSTIPAT ION - HOLD FOR LOOSE STOOLS 11/09 completed Not Available Not Available Not Available losartan 50 mg tablet 11/26 completed Not Available Not Available Not Available cyclobenzap rine 10 mg tablet 06/23 completed Not Available Not Available Not Available Xylocaine with Epinephrine 2 %-1:100,000 injection solution Take 1 mL by injection route. 03/22 completed Not Available Not Available Not Available acetaminoph en 325 mg tablet TAKE 2 TABLETS BY MOUTH EVERY 8 HOURS ON A REGULAR BASIS 12/05 completed Not Available Not Available Not Available prednisone 10 mg tablet TAKE 1 TABLET BY MOUTH THREE TIMES DAILY FOR 3 DAYS THEN 1 TWICE DAILY FOR 2 DAYS THEN 1 ONCE DAILY FOR 1 DAY 08/26 completed Not Available Not Available Not Available nicotine 14 mg/24 hr daily transdermal patch 09/02 completed Not Available Not Available Not Available cetirizine 10 mg tablet 02/10 completed Not Available Not Available Not Available atorvastati n 10 mg tablet 11/26 completed Not Available Not Available Not Available pravastatin 40 mg tablet 02/19 completed Not Available Not Available Not Available fluconazole 150 mg tablet TAKE ONE TABLET BY MOUTH DIRECTED 08/26 completed Not Available Not Available Not Available hydrocodone 5 mg-acetamin ophen 325 mg tablet TK 1 T PO Q 6 H PRF PAIN active Not Available Not Available No t Available hydrocortis one 1 % topical ointment GUS AA BID 02/19 completed Not Available Not Available Not Available meloxicam 15 mg tablet TAKE 1 TABLET BY MOUTH DAILY 11/26 completed Not Available Not Available Not Available sumatriptan 25 mg tablet 02/10 completed Not Available Not Available Not Available metronidazo le 0.75 % (37.5 mg/5 gram) vaginal gel INSERT ONE APPLICATO RFUL VAGINALLY AT BEDTIME FOR 5 DAYS 03/22 completed Not Available Not Available Not Available lisinopril 20 mg tablet TAKE 1 TABLET BY MOUTH DAILY 09/02 completed Not Available Not Available Not Available prednisone 20 mg tablet TK 1 T PO D FOR 5 DAYS COU active Not Available Not Available No t Available simvastatin 10 mg tablet 06/23 completed Not Available Not Available Not Available terconazole 0.8 % vaginal cream INSERT ONE APPLICATO RFUL VAGINALLY QD 02/19 completed Not Available Not Available Not Available metronidazo le 500 mg tablet TAKE 1 TABLET BY MOUTH TWICE DAILY FOR 10 DAYS 08/26 completed Not Available Not Available Not Available ciprofloxac in 500 mg tablet 02/19 completed Not Available Not Available Not Available sulfamethox azole 800 mg-trimetho prim 160 mg tablet 02/19 completed Not Available Not Available Not Available tramadol 50 mg tablet TAKE 1 TABLET BY MOUTH EVERY 4 HOURS active Not Available Not Available No t Available amoxicillin 500 mg tablet TAKE 1 TABLET BY MOUTH THREE TIMES DAILY FOR 7 DAYS 01/02 completed Not Available Not Available Not Available prednisone 10 mg tablets in a dose pack Take 1 tab by mouth, 3 times a day for 3 daysTake 1 tab by mouth 2 times a day for 2 daysTake 1 tab by mouth once a day for 1 day 08/26 completed Not Available Not Available Not Available amitriptyli ne 25 mg tablet 02/10 completed Not Available Not Available Not Available Kenalog 10 mg/mL suspension for injection Take 20 mg by injection route. 08/26 completed [facility]: [phone]- [phone] Not Available Not Available Not Available baclofen 10 mg tablet TAKE 1 TABLET BY MOUTH THREE TIMES DAILY NEEDED FOR MUSCLE PAIN 06/23 completed Not Available Not Available Not Available hydrocodone 7.5 mg-acetamin ophen 325 mg tablet TAKE 1 TABLET BY MOUTH EVERY 4 HOURS NEEDED FOR PAIN 03/23 completed Not Available Not Available Not Available cephalexin 500 mg capsule 02/19 completed Not Available Not Available Not Available simvastatin 20 mg tablet 11/26 completed Not Available Not Available Not Available tobramycin 0.3 % eye drops 02/10 completed Not Available Not Available Not Available nystatin 100,000 unit/gram topical cream APPLY TOPICALLY TO THE AFFECTED AREA TWICE DAILY 06/23 completed Not Available Not Available Not Available lisinopril 10 mg tablet Take 1 tablet every day by oral route. active Not Available Not Available No t Available diclofenac potassium 50 mg tablet 02/10 completed Not Available Not Available Not Available diclofenac sodium 75 mg tablet,emmett yed release Take 1 tablet twice a day by oral route as directed for 30 days. active Not Available Not Available No t Available montelukast 10 mg tablet active Not Available Not Available Not Available pravastatin 20 mg tablet 02/19 completed Not Available Not Available Not Available ergocalcife rol (vitamin D2) 1,250 mcg (50,000 unit) capsule TAKE 1 CAPSULE BY MOUTH WEEKLY active Not Available Not Available No t Available methylpredn isolone 4 mg tablets in a dose pack TAKE BY MOUTH DIRECTED ON INSIDE OF PACKAGE active Not Available Not Available No t Available albuterol sulfate HFA 90 mcg/actuati on aerosol inhaler active Not Available Not Available Not Available cefdinir 300 mg capsule TAKE 1 CAPSULE BY MOUTH TWICE DAILY FOR 7 DAYS 11/09 completed Not Available Not Available Not Available fluticasone propionate 50 mcg/actuati on nasal spray,suspe nsion USE 1 SPRAY IN EACH NOSTRIL D active Not Available Not Available No t Available naproxen 500 mg tablet 02/19 completed Not Available Not Available Not Available amoxicillin 875 mg-potassiu m clavulanate 125 mg tablet active Not Available Not Available Not Available amoxicillin 500 mg-potassiu m clavulanate 125 mg tablet TAKE 1 TABLET BY MOUTH EVERY 8 HOURS FOR 10 DAYS 11/26 completed Not Available Not Available Not Available oxycodone 5 mg tablet TAKE 1 TABLET BY MOUTH EVERY 4 HOURS NEEDED 12/26 completed Not Available Not Available Not Available nitrofurant oin monohydrate /macrocryst als 100 mg capsule 08/26 completed Not Available Not Available Not Available Flovent HFA 44 mcg/actuati on aerosol inhaler INHALE 1 PUFF BY MOUTH TWICE DAILY 11/26 completed Not Available Not Available Not Available aspirin active Not Available Not Avail able Not Available lidocaine (PF) 10 mg/mL (1 %) injection solution In office injection administe red by the provider 11/26 completed [facility]: [phone]- [phone] Not Available Not Available Not Available Symbicort 80 mcg-4.5 mcg/actuati on HFA aerosol inhaler INHALE 2 PUFFS BY MOUTH TWICE DAILY 08/26 completed Not Available Not Available Not Available Zyrtec 10 mg capsule Take 1 capsule every day by oral route. 08/26 completed Not Available Not Available Not Available ropivacaine (PF) 5 mg/mL (0.5 %) injection solution Take 20 mg by injection route. 08/26 completed [facility] [phone] Not Available Not Available Not Available Eliquis 2.5 mg tablet TAKE 1 TABLET BY MOUTH EVERY 12 HOURS FOR 14 DAYS FOR ODILON ELLIST 12/05 completed Not Available Not Available Not Available Vitals Date Recorded Body height Provider Name an d Address Organization Details Last Updated DateTime 12/27/2023 160.02 cm Renita Perez [facility] 12/27/2023 14:18:03 Date Recorded Body height Provider Name an d Address Organization Details Last Updated DateTime 01/02/2024 160.02 cm Dorothy Beal [facility] 01/02/2024 14:14:17 Date Recorded Body height Provider Name an d Address Organization Details Last Updated DateTime 01/16/2024 160.02 cm Dorothy Beal [facility] 01/16/2024 14:31:14 Date Recorded Body height Provider Name an d Address Organization Details Last Updated DateTime 01/27/2024 160.02 cm Mariam Gongoras [facility] 01/27/2024 11:53:07 Social History Question Answer Notes LastModified by Organizat ion Details LastModified Time Tobacco Smoking Status Current Every Day Smoker Not Available [facility] 01/05/2023 13:56:31 In The 14 Days Before Symptom Onset, Have You Had Close Contact With A Laboratory-confirm ed COVID-19 While That Case Was Ill? No [id number] Information not available 01/05/2023 In The 14 Days Before Symptom Onset, Have You Had Close Contact With A Person Who Is Under Investigation For COVID-19 While That Person Was Ill? No [id number] Information not available 01/05/2023 How Much Tobacco Do You Smoke? 0.5 PPD [id number] Information not available 01/05/2023 Have You Recently Traveled Abroad? No [id number] Information not available 01/05/2023 Sex: Unknown Functional Status Question Answer Note LastModified by Organizat ion Details LastModified Time What is your level of alcohol consumption? Occasional [id number] Information not available 01/05/2023 Mental Status None recorded. Family History Relationship Description Onset Age of this Age Resolved Age Notes LastModified by Organization Details LastModified Time Sister Family history of malignant neoplasm [email or web address] Not available 2023 09:50:05 Mother Diabetes mellitus [email or web address] Not available 2023 09:50:34 Medical History Condition Response SLEEP APNEA N MRSA N ALLERGIES/HAYFEVER N LUNG DISEASE/DISORDER N INSOMNIA N HISTORY OF DRUG ABUSE N RADIATION / CHEMOTHERAPY N COPD N HIGH CHOLESTEROL / HYPERLIPIDEMIA Y HYPERTHYROIDISM N BLOOD DISEASES N EAR OR HEARING PROBLEMS N HYPOTHYROIDISM N SHINGLES N DEPRESSION (INCLUDING POST ) N HAVE YOU BEEN HOSPITALIZED OR SEEN IN [facility] ER IN THE PAST YEAR ? N STROKE/TIA N ULCERS N OBESITY N HISTORY WITH COMPLICATIONS WITH ANESTHES IA ? N ANEURYSM N USE OF BLOOD THINNERS N NO SIGNIFICANT PAST MEDICAL HISTORY N DIABETES, TYPE N PARATHYROID DISEASE N ENT N SEASONAL ALLERGIES Y HEARTBURN / REFLUX Y HEPATITIS / LIVER DISEASE N SLEEP DISORDER N SEIZURES/EPILEPSY N HEADACHES/MIGRAINES N CHF N PACEMAKER N DIZZINESS N HEART DISEASE/HEART PROBLEMS N AIDS/HIV N FRACTURES N HYPERTENSION Y CANCER: SPECIFY N TOURETTE'S N BLOOD TRANSFUSION N ANESTHESIA COMPLICATIONS N ANEMIA/BLOOD DISORDER N CHRONIC EAR INFECTIONS N TUBERCULOSIS N Gynecological HistoryNo gynecological history recorded. Obstetrics History GPAL:G 0 P 0 0 0 0 Past Encounters Encounter ID Performer Location Encounter Start Date Encounter Closed Date Diagnosis/Indication Diagnosis SNOMED-CT Code Diagnosis ICD10 Code Diagnosis Note [id number] [place] MD [facility] [address] [place] [address] 02/10/2021 00:00:00 02/10/2021 16:24:39 [id number] [place] [address] [facility] [address] [place] [address] 06/11/2021 00:00:00 06/11/2021 10:14:57 [id number] [place] MD [facility] [address] [place] [address] 07/02/2021 00:00:00 07/02/2021 10:38:38 [id number] MD MARTA [facility] [address] [place] [address] 09/01/2021 00:00:00 09/01/2021 14:41:22 [id number] [place] MD [facility] [address] [place] [address] 09/22/2021 00:00:00 09/22/2021 14:43:49 [id number] MD MARTA [facility] [address] [place] [address] 10/20/2021 00:00:00 10/20/2021 14:43:31 [id number] MD MARTA [facility] [address] [place] [address] 11/26/2021 00:00:00 11/26/2021 11:01:18 [id number] MD MARTA [facility] [address] [place] [address] 01/07/2022 00:00:00 03/10/2022 18:14:19 [id number] [place] MD [facility] [address] [place] [address] 02/08/2022 00:00:00 02/08/2022 10:20:13 [id number] MD MARTA [facility] [address] [place] [address] 03/23/2022 00:00:00 03/23/2022 14:42:36 [id number] MD LESLIE [facility] [address] [place] [address] 06/24/2022 00:00:00 06/24/2022 16:44:21 [id number] [place] [address] [facility] [address] [place] [address] 09/23/2022 00:00:00 09/23/2022 11:45:25 [id number] [place] [address] [facility] [address] [place] [address] 05/16/2023 09:47:00 05/16/2023 10:40:10 Pain of right knee joint [id number] 07361 M25.561 [id number] [place] [address] [facility] [address] [place], [place] [address] 06/13/2023 09:42:54 06/13/2023 11:00:08 Pain of right knee joint 2898305629 31842 M25.561 Osteoarthr itis of right knee joint 1885645411 85652 M17.11 [id number] Gentry [address] [facility] [address] [place] [address] 08/26/2023 09:20:32 08/29/2023 11:45:00 Osteoarthritis of right knee joint 5280859508 57153 M17.11 Pain of ri ght hip joint 8418903844 22252 M25.990 [id number] [address] [facility] [address] [place] [address] 09/02/2023 11:45:38 09/05/2023 11:02:30 Osteoarthritis of right knee joint 9727289711 15731 M17.11 Pain of ri ght hip joint 7954679660 39278 M25.[address] [id number] [facility] [address] [place] [address] 11/09/2023 09:35:54 11/09/2023 10:54:56 History of right total knee replacement 7310492619 505248 Z96.630 [id number] Gentry Landis MD [facility] [address] [place] [address] 11/23/2023 11:09:48 11/23/2023 11:44:42 History of right total knee replacement 7594212958 024446 Z96.994 [id number] Gentry Landis MD [facility] [address] [place] [address] 12/05/2023 15:52:27 12/05/2023 16:53:50 History of right total knee replacement 2482919749 771537 Z96.420 [id number] Gentry Landis MD [facility] [address] [place] [address] 12/26/2023 14:24:59 12/26/2023 15:04:21 History of right total knee replacement 5504280980 422539 Z96.614 [id number] Gentry Landis MD [facility] [address] [place] [address] 12/27/2023 14:07:49 12/27/2023 16:27:29 History of right total knee replacement 4869133261 649231 Z96.651 M25.413 [id number] Gentry Landis MD [facility] [address] [place] [address] 01/02/2024 14:11:28 01/02/2024 16:56:04 History of right total knee replacement 3132144245 913935 Z96.159 [id number] Gentry Landis MD [facility] [address] [place] [address] 01/16/2024 14:24:00 01/16/2024 16:22:15 History of right total knee replacement 8192427587 984654 Z96.370 [id number] Gentry Landis MD [facility] [address] [place] [address] 01/23/2024 13:29:29 01/30/2024 12:42:52 History of right total knee replacement 7603079601 726866 Z96.651 Osteoarthr itis of right knee joint 8758811527 93737 M17.11 Pain of ri ght knee joint 4179448851 12019 M25.561 Z96.651 M25.793 [id number] Simeon Davis MD [facility] [address] [place] [address] 01/27/2024 11:51:31 01/27/2024 13:32:06 History of right total knee replacement 3458199750 602445 Z96.651 Pain in pelvis 73991438 R10.2 Numbness o f lower limb 872713675 R20.0 Health Concerns Section Related Observation LastModified by Organization Detai ls LastModified Time None Recorded Concern Status LastModified by Organization Details LastModified Time None Recorded Advance Directives Directive None Recorded Payers Insurance Date Sequence Insurance Name Policy Number Policy Valverde Covered Member ID Valverde Member ID Guarantor Name 03/17/2024 1 [facility] - DOS ON OR AFTER 21 (MEDICAID REPLACEMENT - HMO) Magui Mendoza [id number] Magui Mendoza OBGyn Episode No OBEpisode recorded.
--- OUTSIDE RECORDS SUMMARY | 2025-05-14 12:36 | XMS_ITS | Continuity of Care Document ---
Author Organization [facility] Address [address] [place] [address] [place] [address] Phone Care Team Providers Care Tubular Stock Glass Bulb Machine Former Name Role Phone Truong Shi Unavailable Unavailable Procedures Procedure Date Post-op Follow-up Visit After Cataract Laser Surgery Post-op Follow-up Visit Post-op Follow-up Visit After Cataract Laser Surgery Office/outpatient Visit, Est Advance Directives Directive Yes / No Effective Date File Name No Information Encounters Encounter Description Practice Location Reason(s) For Visit Diagnoses Date Provider Providers Copied on Encounter [facility], [address] [place] [address] [address], [place], [place], [id number], tel:[phone] [facility] No Information 8200 [address] Jose Guadalupe Guerin. [address] , [address], [place], [address], [place]. tel:[phone] [facility], [address] [place] [address] [address], [place], [place], [id number], [place] tel:[phone] [facility] No Information 0[address] Doistephani Guerin. [address] [facility] [address] [facility] [address] , [address], [place], [address], [place]. tel:[phone] Referring Provider: Any Moreno OD, [address], [place], [address]. tel:[phone] [facility], [address] [place] [address] [address], [place], [place], [id number], [place] tel:[phone] [facility] No Information Dec-2 2-200 8 Doisy Edkitty. [address] [facility] [address] , [address], [place], [place], [facility], . tel:[phone] [facility], [address], [place], [place], [address], tel:[phone] [facility] No Information Dec-0 4-200 8 Walker OD Castro. [address] [facility] [address] , [address], [place], [place], [facility], [place]. tel:[phone] [facility], [address], [place], [place], [address], tel:[phone] [facility] No Information Nov-2 5-200 8 Doisy Edkitty. [address] [facility] , [address], [place], [place], [facility], [place]. tel:[phone] Office/outpat ient Visit, [facility] [address], [place], [place], [address], tel:[phone] [facility] No Information Nov-0 3-200 8 Doisy Edkitty. [facility] , [address], [place], [place], [facility], [place]. tel:[phone] Referring Provider: Any Moreno OD, [address], [place], [address]. tel:[phone] Family History Family Member Type Diagnosis Age At Onset No Information Payers Payer name Insurance type Covered republican ID Authoriza tion(s) No Information Social History Type Description Quantity Date Captured Comments Sex Female Smoking Status No Information Chief Complaint And Reason For Visit No Information Reason For Referral Reason For Referral No Information History Of Present Illness Encounter Date Complaint History Of Prese nt Illness No Information Functional Status Date Functional Assessmen t No Information Instructions Date Instruction Additional Infor mation No Information Assessments Type Assessment Date No Information Patient Care Teams Name Effective Dates (start - stop) Status Members No Information
--- OUTSIDE RECORDS SUMMARY | 2025-05-14 12:36 | XMS_ITS | Clinical Summary ---
Author Organization [facility] Address [address] [facility] [place] [address] Care Team Providers Care Button Puncher Name Role Phone Cleveland Tovar MD Primary Care Provider [phone] Source Comments [facility],non-owned Affiliates and Associated Physician Practices is amultiple site organization consisting of ambulatory clinics and hospital sitesin [place], [place], [place] and [place]. This disclosure is being madepursuant to the Care Everywhere program and may not contain all information available regarding this patient. Last updated 18.[facility] Allergies No known active allergies Medications * Be aware that medications may not be up to date on this document. Alwaysverify current medications with the patient. lisinopril (PRINIVIL; ZESTRIL) 20 MG tablet Take 20 mg by mouth once daily Active SUMAtriptan (IMITREX) 25 MG tablet Take 1 tab by mouth once at first sign of migraine. May repeat one time after 2 hours if needed. 9 tablet 2 0 Active Additional Information Patient taking differently: 25 mg Oral ONCE PRN, Take 1 tab by mouth once at first sign of migraine. May repeat one time after 2 hours if needed., Reported on 06/02/2020 amitriptyline (ELAVIL) 25 MG tablet Take 25mg nightly x 1 week, then 50mg nightly x 1 week, then 75mg nightly. 90 tablet 1 0 Active cetirizine (ZYRTEC) 10 MG tablet Take 1 tablet by mouth once daily Active Active Problems Problem Noted Date Diagnosed Date Nasal obstruction 05/21/2020 Deviated nasal septum 05/21/2020 Hypertrophy of both inferior nasal turbinates Social History Tobacco Use Types Packs/Day Years Used Date Smoking Tobacco: Every Day Smokeless Tobacco: Never Alcohol Use Standard Drinks/Week Comments Yes 0 (1 standard drink = 0.6 oz pur e alcohol) Comments Unknown Sex and Gender Information Value Date Recorded Sex Assigned at Not on file Legal Sex Female 9:35 AM CDT Gender Identity Not on file Sexual Orientation Not on file Last Filed Vital Signs Vital Sign Reading Time Taken Comments Blood Pressure 122/75 05/21/2020 12:59 PM CDT Pulse 78 05/21/2020 12:59 PM CDT Temperature - - Respiratory Rate - - Oxygen Saturation - - Inhaled Oxygen Concentration - - Weight 69.4 kg (153 lb) 06/02/2020 10:57 AM CDT Height 165.1 cm (5' 5) 06/02/2020 10:57 AM CDT Body Mass Index 25.46 06/02/2020 10:57 AM CDT Plan of Treatment Health Maintenance Due Date Last Done Comments COLOGUARD (AGES 45-75) - COL ON CA SCREENING 1962 COLON MONITORING 1962 COLONOSCOPY - COLON CA SCREENING 1962 CT COLONOGRAPHY - COLON CA SCREENING 1962 Colorectal Cancer Screening 1962 FIT - COLON CA SCREENING 1962 FLEX SIG - COLON CA SCREENING 1962 LIPID TESTING 1962 MAMMOGRAM 1962 HIV SCREENING 1977 HEPATITIS C SCREENING 06/28/1980 DTAP/TDAP/TD VACCINES (1 - Tdap) 1981 PNEUMOCOCCAL VACCINE 50+ (1 of 1 - PCV) 2012 ZOSTER VACCINE (1 of 2) 2012 SCREENING FOR DIABETES 05/21/2020 COVID-19 VACCINE (1 - 2023-2 5 season) 2024 DEPRESSION SCREENING 11/07/2024 INFLUENZA VACCINE (#1) 2025 Respiratory Syncytial Virus (RSV) Vaccine Pt: or over 60 yrs (1 - 1-dose 75+ series) 2037 HEPATITIS B VACCINE Aged Out No longe r eligible based on patient's age to complete this topic HIB VACCINE Aged Out No longer eligi ble based on patient's age to complete this topic HPV VACCINE Aged Out No longer eligi ble based on patient's age to complete this topic MENINGOCOCCAL (Group B) VACC INE SHARED DECISION-MAKING Aged Out No longer eligibl e based on patient's age to complete this topic MENINGOCOCCAL GROUPS A/C/Y/W VACCINE Aged Out No longer eligible b ased on patient's age to complete this topic Insurance Care Teams Button Puncher Relationship Specialty Start Date End Date Cleveland Tovar MD [address] [place] [address] PCP - General 05/20/20
--- NOTE | 2025-05-14 14:47 | ED.GENADULT ---
HPI - General Adult General Chief complaint: Unspecified Stated complaint: rib pain Time Seen by Provider: 05/14/25 12:27 History of Present Illness HPI narrative: 64-year-old female presents to the emergency department for evaluation for some left-sided rib pain. Patient reports that she was sitting on toilet and coughed and felt a pop and her left lower rib. Patient denies any falls or injuries. Patient denies a shortness of breath but does have increased pain with deep inspiration and with movement. Related Data Home Medications ?Medication ?Instructions ?Recorded ?Confirmed ?Last Taken ?Type lisinopril 20 mg tablet 10 mg PO DAILY 01/29/20 10/24/24 08/18/21 History Allergies Allergy/AdvReac Type Severity Reaction Status Date / Time No Known Allergies Allergy Unknown Verified 05/14/25 11:45 Review of Systems Review of Systems: All systems reviewed & are unremarkable except as noted in HPI and below PMFSH Past Medical History Medical History Retinitis pigmentosa Hyperlipidemia Hypertension Surgical History Surgical History History of ear surgery Hx of total knee arthroplasty right 2022, Dr. Landis. Family History Family History Other Family history of coronary artery disease Social History Social History Smoking packs per day: 0.5 Smoking cigarettes per day: 10.0 Years smoked: 40 Smoking pack-years: 20.00 Smoking status: Current every day smoker Tobacco type: cigarettes Alcohol intake: current Alcohol use details: 12/MONTH Substance use: never Substance use type: does not use Do You Feel Safe in your Home?: Yes Lack of Transportation: No Lack of Food: Never True Current Housing: I Have Housing Concerned About Future Housing: No Difficulty Paying Gas/Electric Bills: No Difficulty Paying for Meds: No Currently Unemployed: No Education: High School Diploma/GED Difficulty w/ Childcare or Family Care: No Living arrangements: with family Occupation/Education: unemployed Gender identity (if verbalized by the patient): Female Spiritual care concerns: No Exam Narrative: APPEARANCE: Well appearing, no pain, no distress, well-nourished. HEAD: normocephalic, atraumatic. EYES: PERRLA/EOMI, conjunctivae clear. NOSE: Normal no drainage EARS:TMS clear with good light reflex. THROAT: Pharynx clear, no exudate. NECK: Supple. No adenopathy, no masses. RESPIRATORY: Clear lung sounds CARDIOVASCULAR: Regular rate and rhythm without murmurs rubs or gallops. ABDOMINAL: Soft, nontender, nondistended, normal bowel sounds MUSCULOSKELETAL: Left lower rib tenderness to palpation NEURO: Alert. Cranial nerves II through XII intact. Good gait. Good coordination SKIN: Warm, dry. Normal Color Course Vital Signs Vital signs: Vital Signs Pulse Rate 89 05/14/25 11:44 Respiratory Rate 05/14/25 11:44 Blood Pressure 138/80 05/14/25 11:44 Pulse Oximetry 95 05/14/25 11:44 Temperature 97.7 F 05/14/25 11:45 Pulse Rate 89 05/14/25 11:45 Respiratory Rate 05/14/25 11:45 Blood Pressure 138/80 05/14/25 11:45 Pulse Oximetry 95 05/14/25 11:45 Oxygen Delivery Room Air 05/14/25 11:45 Medical Decision Making MDM Narrative Medical decision making narrative: 64-year-old female presents to the emergency department for evaluation for left lower rib pain. Patient does have reproducible rib tenderness to palpation with no palpable crepitus. X-ray shows no evidence of pneumonia, pneumothorax or rib fractures. Patient was provided medication for pain control along with his symptoms spirometer. Both patient and family are updated on the results of the workup and plan for treatment for home. Differential Diagnosis Differential Diagnosis: Rib fracture, rib contusion, pneumonia, pneumothorax Vital Signs Vital Signs: Vital Signs Pulse Rate 89 05/14/25 11:44 Respiratory Rate 05/14/25 11:44 Blood Pressure 138/80 05/14/25 11:44 Pulse Oximetry 95 05/14/25 11:44 Temperature 97.7 F 05/14/25 11:45 Pulse Rate 89 05/14/25 11:45 Respiratory Rate 20 05/14/25 11:45 Blood Pressure 138/80 05/14/25 11:45 Pulse Oximetry 95 05/14/25 11:45 Oxygen Delivery Room Air 05/14/25 11:45 Imaging Data Radiologist's impression: Impressions Chest X-Ray 05/14/25 13:10 Impression: Normal chest. Discharge Plan Discharge Clinical Impression: Closed rib fracture Patient Disposition: Home Condition: Stable Instructions: Antibiotic Form, How to Use an Incentive Spirometer (ED), Rib Fracture (ED) Additional Instructions: Tylenol for pain control. Replace with [place] as needed for additional pain control. Do not take Tylenol and [place] at the same time as both to contain acetaminophen. Incentive spirometer as directed. If you have worsening pain, worsening shortness of breath or high fever then please call or return to the emergency department. Patient Language: Greenlandic Prescriptions: New hydrocodone-acetaminophen 5-325 mg tablet 1 tablet PO Q12H PRN (Reason: pain) Qty: 14 0RF No Action lisinopril 20 mg Tablet 10 mg PO DAILY Follow-up/Referrals: Cleveland Tovar MD [Primary Care Provider] -
[2025-05-14] MEDS: HYDROcodone/acetaminophen (*CRX) 5-325 MG TABLET 1 TAB PO (15:09)
== END 2025-05-14 15:23 | disposition home or self-care (01) ==
PROVIDERS: Emergency Provider Emergency Medicine; PCP Emergency Medicine
DX: S22.32XA Fracture of one rib, left side, initial encounter for closed fracture (principal); W01.0XXA Fall on same level from slipping, tripping and stumbling without subsequent striking against object, initial encounter; E78.5 Hyperlipidemia, unspecified; I10 Essential (primary) hypertension; X50.0XXA Overexertion from strenuous movement or load, initial encounter
CPT/HCPCS: 71046; 99283; A9270